=== PATIENT | female | born 1990 | race African-American/Black ===

== ENCOUNTER 2016-11-08 10:31 | Emergency (ER) | payer OTHER ==
[2016-11-08 10:43] VITALS: BP 125/73
--- NOTE | 2016-11-08 11:20 | ER Document Report ---
ED Medical Screen (RME) - General Chief Complaint: Vaginal Bleeding Stated Complaint: VAGINAL BLEEDING TRAVEL OUTSIDE OF THE U.S[place] IN LAST 30 DAYS: No - HPI Notes: 11/08/16 11:19 Patient states negative test at home concern about vaginal discharge and bleeding. States recently treated for gonorrhea chlamydia and trichomonas. Last sexual course of the week and half ago. Concerned she may be infected again with STD. - Related Data Allergies/Adverse Reactions: No Known Allergies Allergy (Verified 11/08/16 10:41) Past Medical History - Past Medical History Cardiac Medical History: Reports: Hx Heart Murmur Pulmonary Medical History: Denies: Hx Tuberculosis Neurological Medical History: Denies: Hx Seizures Renal/ Medical History: Denies: Hx Peritoneal Dialysis Past Surgical History: Reports: Hx Abdominal Surgery, Hx Gynecologic Surgery - right fallopian tube removed by laparoscope.. Denies: Hx Hysterectomy, Hx Tubal Ligation - Immunizations Immunizations up to date: No Hx Diphtheria, Pertussis, Tetanus Vaccination: No Review of Systems - Review of Systems Notes: Vaginal discharge Physical Exam - Vital signs Vitals: Temp Pulse Resp BP Pulse Ox 98.8 F 71 20 125/73 100 11/08/16 10:41 11/08/16 10:41 11/08/16 10:41 11/08/16 10:41 11/08/16 10:41 Interpretation: Other - Vaginal discharge Course - Vital Signs Vital signs: Temp Pulse Resp BP Pulse Ox 98.8 F 71 20 125/73 100 11/08/16 10:41 11/08/16 10:41 11/08/16 10:41 11/08/16 10:41 11/08/16 10:41
--- NOTE | 2016-11-08 11:43 | ER Document Report ---
ED GI/ - General Chief Complaint: Vaginal Discharge Stated Complaint: VAGINAL BLEEDING Time seen by provider: 11:40 Mode of Arrival: Ambulatory Information source: Patient Notes: 25-year-old female presents to ED for vaginal discharge with some spotting for the last week. She states that she was treated in the emergency room about a month ago for GC chlamydia and Trichomonas and her boyfriend states that he was also treated. They had intercourse about a week ago she started with the symptoms 2-3 days. She states she has since broke up with her boyfriend and needs to be reevaluated. TRAVEL OUTSIDE OF THE [place] IN LAST 30 DAYS: No - HPI Patient complains to provider of: Vaginal bleeding, Vaginal discharge Timing/Duration: Gradual Quality of pain: No pain Pain Level: 0 Location: Other - Vaginal discharge Vaginal bleeding (Compared to normal period): Spotting LMP: 10/26/2016 Associated symptoms: Vaginal discharge, Other - Vaginal bleeding Exacerbated by: Denies Relieved by: Denies Similar symptoms previously: Yes Recently seen / treated by doctor: Yes - Related Data Allergies/Adverse Reactions: No Known Allergies Allergy (Verified 11/08/16 10:41) Past Medical History - General Information source: Patient - Social History Smoking Status: Never Smoker Cigarette use (# per day): No Chew tobacco use (# tins/day): No Smoking Education Provided: No Frequency of alcohol use: None Drug Abuse: None Family History: None Patient has suicidal ideation: No Patient has homicidal ideation: No - Past Medical History Cardiac Medical History: Reports: Hx Heart Murmur Pulmonary Medical History: Reports: None EENT Medical History: Reports: None Neurological Medical History: Reports: None Endocrine Medical History: Reports: None Renal/ Medical History: Reports: Hx Pelvic Inflammatory Disease Malignancy Medical History: Reports: None GI Medical History: Reports: None Musculoskeltal Medical History: Reports None Skin Medical History: Reports None Psychiatric Medical History: Reports: None Traumatic Medical History: Reports: None Infectious Medical History: Reports: None Past Surgical History: Reports: Hx Gynecologic Surgery - right fallopian tube removed by laparoscope. - Immunizations Immunizations up to date: No Hx Diphtheria, Pertussis, Tetanus Vaccination: No Review of Systems - Review of Systems Constitutional: No symptoms reported EENT: No symptoms reported Cardiovascular: No symptoms reported Respiratory: No symptoms reported Gastrointestinal: No symptoms reported Genitourinary: Discharge Female Genitourinary: No symptoms reported Musculoskeletal: No symptoms reported Skin: No symptoms reported Hematologic/Lymphatic: No symptoms reported Neurological/Psychological: No symptoms reported -: Yes All other systems reviewed and negative Physical Exam - Vital signs Vitals: Temp Pulse Resp BP Pulse Ox 98.8 F 71 20 125/73 100 11/08/16 10:41 11/08/16 10:41 11/08/16 10:41 11/08/16 10:41 11/08/16 10:41 Interpretation: Normal - General General appearance: Appears well, Alert - HEENT Head: Normocephalic, Atraumatic Eyes: Normal Pupils: PERRL - Respiratory Respiratory status: No respiratory distress Chest status: Nontender Breath sounds: Normal Chest palpation: Normal - Cardiovascular Rhythm: Regular Heart sounds: Normal auscultation Murmur: No - Abdominal Inspection: Normal Distension: No distension Bowel sounds: Normal Tenderness: Nontender Organomegaly: No organomegaly - Genitourinary External exam: Normal Speculum exam: Cervix closed, Vaginal discharge Vaginal bleeding: None Bimanuel exam: Normal - Back Back: Normal, Nontender - Extremities General upper extremity: Normal inspection, Nontender, Normal color, Normal ROM , Normal temperature General lower extremity: Normal inspection, Nontender, Normal color, Normal ROM , Normal temperature, Normal weight bearing. No: Marquise's sign - Neurological Neuro grossly intact: Yes Cognition: Normal Orientation: AAOx4 Gilbert Coma Scale Eye Opening: Spontaneous Gilbert Coma Scale Verbal: Oriented Heather Coma Scale Motor: Obeys Commands Heather Coma Scale Total: 15 Speech: Normal Motor strength normal: LUE, RUE, LLE, RLE Sensory: Normal - Psychological Associated symptoms: Normal affect, Normal mood - Skin Skin Temperature: Warm Skin Moisture: Dry Skin Color: Normal Course - Vital Signs Vital signs: Temp Pulse Resp BP Pulse Ox 98.8 F 71 20 125/73 100 11/08/16 10:41 11/08/16 10:41 11/08/16 10:41 11/08/16 10:41 11/08/16 10:41 - Laboratory Laboratory results interpreted by me: 11/08/16 11:35 Urine Blood SMALL H Ur Leukocyte Esterase MODERATE H Discharge - Discharge Clinical Impression: Trichomonas vaginitis, Bacterial vaginitis Vaginitis Qualifiers: Chronicity: acute Qualified Code(s): N76.0 - Acute vaginitis Condition: Stable Disposition: HOME, SELF-CARE Instructions: Family Physicians / Practices, Vaginosis, Bacterial ([facility]), Trichomonas Infection ([facility]) Additional Instructions: Vaginitis Your exam shows that you have vaginitis, a vaginal infection. The infection can be caused by a many different organisms, including trichomonas or Gardnerella. The usual symptoms are vaginal irritation and discharge. The treatment is usually antibiotics such as Flagyl. Laboratory tests can determine which germ is responsible. Use the medication as prescribed. Because this infection can be transmitted sexually, your sexual partner may need to be checked and treated also. If your physician has not discussed this with you, please check before resuming sexual relations. If a culture shows gonorrhea or chlamydia, the infection must be reported to the health department. Call the doctor if you develop pelvic pain, fever, or problems with urination, or if you don't improve as expected. CEPHALOSPORINS: An antibiotic of the cephalosporin class has been prescribed. This type of antibiotic covers a wide variety of infections, including those of the skin, lungs, middle ear, and urinary tract. This antibiotic is somewhat similar to the penicillin family. In rare cases , a person who is allergic to penicillin will also be allergic to this medication. If you have had a severe allergic reaction to penicillin, and have not taken this antibiotic since that time, notify your doctor. Antibiotics which cover many germs ("broad spectrum" antibiotics) are more likely to cause diarrhea or "yeast" infections. Women prone to vaginal yeast problems may suffer an attack after taking this antibiotic. In infants, oral thrush (white spots "stuck" on the cheek) or yeast diaper rash may result. See your doctor if these problems occur. Call the doctor at once if you develop hives, itching, shortness of breath , or lightheadedness. AZITHROMYCIN: Azithromycin (Zithromax) is a broad spectrum antibiotic in the same class as erythromycin. It can treat a variety of bacterial infections, but is most frequently used for respiratory infections. Azithromycin is extremely long-lasting. It accumulates in body tissues and continues to kill bacteria for many days. In order to improve absorption, Azithromycin should be taken at least one hour before or two hours after a meal. It does not have the same strong tendency to upset the stomach as erythromycin and is usually very well tolerated. Patients who have had a rash or other true allergic reactions to erythromycin should not take this medication. Call if you develop gastrointestinal distress, severe diarrhea, rash, hives, itching, or shortness of breath. METRONIDAZOLE: Metronidazole (Flagyl) has been prescribed. This medication is used to kill a type of bacteria called anaerobes, and protozoan parasites such as trichomonas and Giardia. Flagyl often causes a metallic taste in the mouth and mild nausea. Do not use alcohol in any form with Flagyl (including alcohol in medication elixirs). Flagyl interacts with alcohol to cause flushing, palpitations, headache, stomach cramps, and vomiting. Do not use Flagyl if you are taking Antabuse (disulfiram). Call the doctor at once if you develop rash, shortness of breath, itching, or lightheadedness. FOLLOW-UP CARE: If you have been referred to a physician for follow-up care, call the physician s office for an appointment as you were instructed or within the next two days. If you experience worsening or a significant change in your symptoms, notify the physician immediately or return to the Emergency Department at any time for re-evaluation. Prescriptions: Metronidazole [Flagyl 500 mg Tablet] 500 mg PO BID #14 tablet
[2016-11-08 12:00] LABS: APPEARANCE,URINE SLIGHTLY-CLOUDY; BILIRUBIN,URINE NEGATIVE (NEGATIVE); GLUCOSE, URINE NEGATIVE (NEGATIVE); KETONES,URINE NEGATIVE (NEGATIVE); LEUKOCYTE ESTERASE,URINE MODERATE (NEGATIVE); NITRITE,URINE NEGATIVE (NEGATIVE); PROTEIN,URINE NEGATIVE (NEGATIVE); URINE SPECIFIC GRAVITY 1.026; UROBILINOGEN,URINE NEGATIVE mg/dL (<2.0)
[2016-11-08] MEDS ORDERED: CEFTRIAXONE INJ 250 MG VIAL IM ONE (12:15)
[2016-11-08] MEDS ORDERED: METRONIDAZOLE 500 MG TABLET PO ONE (12:15)
[2016-11-08] MEDS ORDERED: LIDOCAINE 1% INJ-PF (10 MG/ML) 30 ML SDV INJ ONE (12:15)
[2016-11-08] MEDS ORDERED: AZITHROMYCIN 250 MG TABLET PO ONE (12:15)
[2016-11-08 13:26] LABS: CHLAM PCR NOT DETECTED (NOT DETECT)
== END 2016-11-08 13:00 | disposition home or self-care (01) ==
LOC: ER 10:31
DX: A59.01 Trichomonal vulvovaginitis (principal); N76.0 Acute vaginitis; N89.8 Other specified noninflammatory disorders of vagina
CPT/HCPCS: 99284; 96372; 51701; 87086; 87210; 81025; 81001; 87491; 87591; J3490; J0696

== ENCOUNTER 2016-12-15 00:36 | Emergency (ER) | payer OTHER ==
[2016-12-15] MEDS ORDERED: HYDROCODONE/ACETAMINOPHEN 5-325 MG 6 TAB/DSPK PO PRN (01:09)
[2016-12-15] MEDS ORDERED: PENICILLIN V POTASSIUM 500 MG TABLET PO ONE (01:09)
--- NOTE | 2016-12-15 01:14 | ER Document Report ---
ED Oral Problem - General Chief Complaint: Toothache Stated Complaint: TOOTHACHE Time Seen by Provider: 12/15/16 01:02 Notes: 25-year-old female presented to ED for dental pain tooth #15 for the last week worse the last 3 days and even worse today. She states it broke off about a week and a half ago. States she called several dentist was not able to be seen today. She states that one person she called that would be $150 to pull the tooth. TRAVEL OUTSIDE OF THE [place] IN LAST 30 DAYS: No - HPI Patient complains to provider of: Toothache Onset: Last week Onset: Gradual Quality of pain: Sharp, Throbbing Severity: Severe Pain Level: 5 Associated symptoms: Toothache Worsened by: Cold Relieved by: Nothing Similar symptoms previously: Yes Recently seen / treated by doctor/dentist: No - Related Data Allergies/Adverse Reactions: No Known Allergies Allergy (Verified 11/08/16 10:41) Past Medical History - General Information source: Patient - Social History Smoking Status: Current Every Day Smoker Cigarette use (# per day): Yes - 1-2 cigarettes a day Smoking Education Provided: Yes - less than 1 minute Frequency of alcohol use: Occasional Drug Abuse: None Occupation: [employer] Lives with: Alone Family History: Arthritis, DM, Hypertension Patient has suicidal ideation: No Patient has homicidal ideation: No - Past Medical History Cardiac Medical History: Reports: Hx Heart Murmur Pulmonary Medical History: Reports: None EENT Medical History: Reports: None Neurological Medical History: Reports: None Endocrine Medical History: Reports: None Renal/ Medical History: Reports: Hx Ectopic , Hx Pelvic Inflammatory Disease Malignancy Medical History: Reports: None GI Medical History: Reports: None Musculoskeltal Medical History: Reports None Skin Medical History: Reports None Psychiatric Medical History: Reports: None Traumatic Medical History: Reports: None Infectious Medical History: Reports: None Past Surgical History: Reports: Hx Gynecologic Surgery - right fallopian tube removed by laparoscope. Ectopic - Immunizations Immunizations up to date: No Hx Diphtheria, Pertussis, Tetanus Vaccination: No Review of Systems - Review of Systems Constitutional: No symptoms reported EENT: Dental problem Cardiovascular: No symptoms reported Respiratory: No symptoms reported Gastrointestinal: No symptoms reported Genitourinary: No symptoms reported Female Genitourinary: No symptoms reported Musculoskeletal: No symptoms reported Skin: No symptoms reported Hematologic/Lymphatic: No symptoms reported Neurological/Psychological: No symptoms reported Physical Exam - Vital signs Vitals: Temp Pulse Resp BP Pulse Ox 98.6 F 82 16 144/108 H 94 12/15/16 00:42 12/15/16 00:42 12/15/16 00:42 12/15/16 00:42 12/15/16 00:42 Interpretation: Normal - General General appearance: Appears well, Alert - HEENT Head: Normocephalic, Atraumatic Eyes: Normal Pupils: PERRL Ears: Normal External canal: Normal Tympanic membrane: Normal Sinus: Normal Nasal: Normal Mouth/Lips: Normal Teeth diagram: 1 - Part of tooth missing large cavity noted tooth #15. Gingivitis throughout , gums Pharynx: Normal Neck: Normal - Respiratory Respiratory status: No respiratory distress Chest status: Nontender Breath sounds: Normal Chest palpation: Normal - Cardiovascular Rhythm: Regular Heart sounds: Normal auscultation Murmur: No - Abdominal Inspection: Normal Distension: No distension Bowel sounds: Normal Tenderness: Nontender Organomegaly: No organomegaly - Back Back: Normal, Nontender - Extremities General upper extremity: Normal inspection, Nontender, Normal color, Normal ROM , Normal temperature General lower extremity: Normal inspection, Nontender, Normal color, Normal ROM , Normal temperature, Normal weight bearing. No: Marquise's sign - Neurological Neuro grossly intact: Yes Cognition: Normal Orientation: AAOx4 [place] Coma Scale Eye Opening: Spontaneous Heather Coma Scale Verbal: Oriented Heather Coma Scale Motor: Obeys Commands Heather Coma Scale Total: 15 Speech: Normal Motor strength normal: LUE, RUE, LLE, RLE Sensory: Normal - Psychological Associated symptoms: Normal affect, Normal mood - Skin Skin Temperature: Warm Skin Moisture: Dry Skin Color: Normal Course - Re-evaluation Re-evalutation: 12/15/16 02:10 Patient treated with Penicillin VK given [place] dispense pack for pain. Patient instructed to follow-up with dentist as soon as possible to have tooth repaired or pulled. - Vital Signs Vital signs: Temp Pulse Resp BP Pulse Ox 97.2 F 70 16 133/87 H 100 12/15/16 01:20 12/15/16 01:20 12/15/16 00:42 12/15/16 01:20 12/15/16 01:20 Discharge - Discharge Clinical Impression: Pain due to dental caries Condition: Stable Disposition: HOME, SELF-CARE Instructions: Dentist Additional Instructions: TOOTHACHE: Your pain is due to dental decay. The tooth must be repaired in order for you to feel better. You will, therefore, be referred to a dentist. We do not have dentists on the staff at [facility]. Severe swelling or drainage around a tooth usually means a dental abscess. This also requires evaluation and treatment by the dentist, but antibiotics may be prescribed while awaiting dental treatment. You should be rechecked immediately if you develop major swelling of the face, increasing pain, a lump in the jaw or gums, headache, difficulty swallowing, or fever. ORAL NARCOTIC MEDICATION: You have been given a prescription for pain control. This medication is a narcotic. It's best taken with food, as nausea can result if taken on an empty stomach. Don't operate machinery or drive within six hours of taking this medication. Do not combine this medicine with alcohol, or with any medication which can cause sedation (such as cold tablets or sleeping pills) unless you get permission from the physician. Narcotics tend to cause constipation. If possible, drink plenty of fluids and eat a diet high in fiber and fruits. Please be aware that prescription narcotics also have the potential for abuse. People become addicted to these medications because of the general sense of wellbeing that they induce. This feeling along with a significant reduction in tension, anxiety, and aggression provides a stimulating seductive quality to these drugs. Once your pain is under control, we encourage you to discard your unused narcotics. PENICILLIN V K: You have been given a prescription for Penicillin VK. Your physician has determined that this is the best antibiotic for your condition. Pen VK can be taken with meals, however more of the antibiotic gets into the bloodstream if it's taken on an empty stomach. Penicillin usually has no side effects. However, allergy to penicillins is common. If you have had an allergic reaction to any drug of the penicillin family, you should never take any other penicillin. Notify your doctor at once if you develop hives, itching, swelling, faintness, or shortness of breath. FOLLOW-UP CARE: You have been referred for follow-up care to the dentists listed below. Call the dentists office for an appointment as you were instructed or within the next two days. If you experience worsening or a significant change in your symptoms, notify the physician immediately or return to the Emergency Department at any time for re-evaluation. [facility] [address] [place] [address] [facility] [address] [facility] [address] [facility] ([facility]) [facility] [address] [email or web address] [address] [place] [address] Wednesday- 8:00am to 5:00 pm Will see patients from other [facility]. Charges based on income and family size and accepts Medicare, Medicaid, and Insurances Will pull molars [facility] [address] Hours of Operation 8:00 am - 4:30 pm weekdays The following dental offices accept Medicaid: [facility] Dr. Spencer Dr. Cedeño Dr. Palacio Dr. Bass Marko Baker Lutsavage, and Melodie oral surgery Dr. Anguiano ([place]) Dr. Murguia ([place]) [facility] Drs. Rose and Thaddeus ([place]) Dr. Sanchez ([place]) [facility] Dr. Rivas ([place]) Drs. Douglas and ([place]) Medicaid Care Line Prescriptions: Penicillin V Potassium [Penicillin Vk 500 mg Tablet] 500 mg PO BID #20 tablet Forms: Elevated Blood Pressure, Smoking Cessation Education, Return to Work
[2016-12-15 01:22] VITALS: BP 133/87
== END 2016-12-15 01:26 | disposition home or self-care (01) ==
LOC: ER 00:36
DX: K02.9 Dental caries, unspecified (principal); F17.210 Nicotine dependence, cigarettes, uncomplicated
CPT/HCPCS: 99282

== ENCOUNTER 2017-01-04 12:10 | Emergency (ER) | payer OTHER, MEDICAID ==
--- NOTE | 2017-01-04 13:13 | ER Document Report ---
ED General - General Chief Complaint: Vaginal Bleeding Stated Complaint: VAGINAL BLEEDING Time Seen by Provider: 01/04/17 13:06 Mode of Arrival: Ambulatory Information source: Patient Notes: This is a 26-year-old female with a history of prior ectopic in 2013 who presents with lower abdominal cramping and vaginal bleeding. Her last menstrual period was on November 24 which puts her at about 6 weeks. She had a positive home test last week. She began spotting yesterday and her bleeding became a little heavier today. She reports left sided pelvic and lower abdominal cramping and pain. She states this feels similar to her prior ectopic. She does not know her blood type. TRAVEL OUTSIDE OF THE [place] IN LAST 30 DAYS: No - Related Data Allergies/Adverse Reactions: No Known Allergies Allergy (Verified 11/08/16 10:41) Past Medical History - General Information source: Patient Last Menstrual Period: 11-24-16 - Social History Smoking Status: Former Smoker Chew tobacco use (# tins/day): No Frequency of alcohol use: None Drug Abuse: None Family History: Arthritis, DM, Hypertension - Past Medical History Cardiac Medical History: Reports: Hx Heart Murmur Pulmonary Medical History: Denies: Hx Tuberculosis Neurological Medical History: Denies: Hx Seizures Renal/ Medical History: Reports: Hx Ectopic , Hx Pelvic Inflammatory Disease. Denies: Hx Peritoneal Dialysis Past Surgical History: Reports: Hx Abdominal Surgery, Hx Gynecologic Surgery - right fallopian tube removed by laparoscope. Ectopic . Denies: Hx Hysterectomy, Hx Tubal Ligation - Immunizations Immunizations up to date: No Hx Diphtheria, Pertussis, Tetanus Vaccination: No Review of Systems - Review of Systems Constitutional: No symptoms reported. denies: Chills, Fever EENT: No symptoms reported Cardiovascular: No symptoms reported. denies: Chest pain Respiratory: No symptoms reported Gastrointestinal: See HPI Genitourinary: No symptoms reported. denies: Burning, Dysuria Female Genitourinary: See HPI Skin: No symptoms reported Hematologic/Lymphatic: No symptoms reported Neurological/Psychological: No symptoms reported Physical Exam - Vital signs Vitals: Temp Pulse Resp BP Pulse Ox 98.8 F 74 14 121/80 99 01/04/17 12:12 01/04/17 12:12 01/04/17 12:12 01/04/17 12:12 01/04/17 12:12 - General General appearance: Appears well, Alert In distress: None - HEENT Head: Normocephalic, Atraumatic Eyes: Normal Pupils: PERRL Mucous membranes: Normal - Respiratory Respiratory status: No respiratory distress Breath sounds: Normal. No: Rhonchi, Stridor, Wheezing - Cardiovascular Rhythm: Regular Heart sounds: Normal auscultation, S1 appreciated, S2 appreciated - Abdominal Inspection: Normal Distension: No distension Bowel sounds: Normal Tenderness: Tender Notes: LLQ TTP, no guarding/rebound/rigidity - Neurological Neuro grossly intact: Yes Cognition: Normal Orientation: AAOx4 - Psychological Associated symptoms: Normal affect, Normal mood - Skin Skin Temperature: Warm Skin Moisture: Dry Skin Color: Normal Course - Vital Signs Vital signs: Temp Pulse Resp BP Pulse Ox 98.8 F 74 14 121/80 99 01/04/17 12:12 01/04/17 12:12 01/04/17 12:12 01/04/17 12:12 01/04/17 12:12
[2017-01-04 14:05] LABS: ABSOLUTE BASOPHILS # (AUTO) 0.1 10^3/uL (0.0-0.2); ABSOLUTE LYMPHOCYTES (AUTO) 1.6 10^3/uL (0.5-4.7); ABSOLUTE MONOCYTES (AUTO) 0.3 10^3/uL (0.1-1.4); ABSOLUTE NEUT (AUTO) 4.3 10^3/uL (1.7-8.2); BASOPHILS % (AUTO) 0.9 % (0-2); EOSINOPHILS % (AUTO) 0.5 % (0-6); HEMOGLOBIN 13.5 g/dL (12.0-15.5); HGB HCT DIFFERENCE -0.5; LYMPHOCYTES % (AUTO) 25.5 % (13-45); MEAN CORPUSCULAR HEMOGLOBIN 28.7 pg (27.0-33.4); MEAN CORPUSCULAR HGB CONC 32.8 g/dL (32.0-36.0); MEAN CORPUSCULAR VOLUME 87 fl (80-97); MONOCYTES % (AUTO) 4.4 % (3-13); RED CELL DISTRIBUTION WIDTH 13.5 % (11.5-14.0); SEGMENTED NEUTROPHILS % (AUTO) 68.7 % (42-78); WHITE BLOOD COUNT 6.2 10^3/uL (4.0-10.5)
[2017-01-04 14:18] LABS: ALANINE AMINOTRANSFERASE 32 U/L (9-52); ALBUMIN 4.5 g/dL (3.5-5.0); ALKALINE PHOSPHATASE 56 U/L (38-126); ANION GAP 7 (5-19); ASPARTATE AMINO TRANSFERASE 23 U/L (14-36); BILIRUBIN,DIRECT 0.2 mg/dL (0.0-0.4); BILIRUBIN,TOTAL 0.5 mg/dL (0.2-1.3); BLOOD UREA NITROGEN 8 mg/dL (7-20); CALCIUM 10.1 mg/dL (8.4-10.2); CARBON DIOXIDE 27 mmol/L (22-30); CHLORIDE 101 mmol/L (98-107); CREATININE RESULT 0.65 mg/dL (0.52-1.25); GLUCOSE 90 mg/dL (75-110); POTASSIUM 4.7 mmol/L (3.6-5.0); SODIUM 135.4 mmol/L (137-145); TOTAL PROTEIN 7.9 g/dL (6.3-8.2)
[2017-01-04] MEDS ORDERED: ACETAMINOPHEN 325 MG TABLET PO ONE (14:29)
--- NOTE | 2017-01-04 15:27 | RADIOLOGY REPORT (SQ) ---
EXAM DESCRIPTION: U/S OB TRANSVAGINAL W/O DOP COMPLETED DATE/TIME: 01/04/2017 3:15 pm REASON FOR STUDY: rule out ectopic, lower abd cramping COMPARISON: None. TECHNIQUE: Transvaginal static and realtime grayscale images acquired of the pelvis. Additional denis cted spectral and color Doppler images recorded. All images stored on PACs. [id number] LIMITATIONS: None. FINDINGS: FETUS: Living intrauterine . EGA: 5 weeks 6 days MEAGAN: 08/31/2017 FHR: 117 beats per minute. SUBCHORIONIC BLEED: No significant. SIZE OF BLEED: Not applicable. UTERUS: No masses. No anomalies. CERVICAL LENGTH: 3.1 cm Closed. RIGHT ADNEXA: Normal ovary with normal vascular flow. No adnexal free fluid. No adnexal masses. LEFT ADNEXA: Normal ovary with normal vascular flow. No adnexal free fluid. No adnexal masses. FREE FLUID: None. OTHER: No other significant finding. IMPRESSION: LIVING INTRAUTERINE . EGA 5 weeks 6 days Trimester of : First - 0 to 13 weeks. TECHNICAL DOCUMENTATION: JOB ID: [id number] [employer]- All Rights Reserved
--- NOTE | 2017-01-04 15:43 | ER Document Report ---
ED GI/ - General Chief Complaint: Vaginal Bleeding Stated Complaint: VAGINAL BLEEDING Time Seen by Provider: 01/04/17 13:06 Mode of Arrival: Ambulatory Notes: Patient is a 26 year old female who presents to the ED complaining of abdominal cramping for 3 weeks with vaginal spotting for one day. LMP 11/24/16 with positive test last week. She states her spotting is miimal. Orginannly she noticied spotting on her underwear but now only when she wipes after urinating. She denies any vaginal discomfort, irritation, discharge. She denies any pyuria, hematuria, frequency, urgency or hesitation. Admits to mild nausea denies any vomiting, abdominal pain. PMH: ectopic with right salpingectomy TRAVEL OUTSIDE OF THE [place] IN LAST 30 DAYS: No - Related Data Allergies/Adverse Reactions: No Known Allergies Allergy (Verified 11/08/16 10:41) Past Medical History - General Information source: Patient Last Menstrual Period: 11-24-16 - Social History Smoking Status: Former Smoker Chew tobacco use (# tins/day): No Frequency of alcohol use: None Drug Abuse: None Family History: Arthritis, DM, Hypertension - Past Medical History Cardiac Medical History: Reports: Hx Heart Murmur Pulmonary Medical History: Denies: Hx Tuberculosis Neurological Medical History: Denies: Hx Seizures Renal/ Medical History: Reports: Hx Ectopic , Hx Pelvic Inflammatory Disease. Denies: Hx Peritoneal Dialysis Past Surgical History: Reports: Hx Abdominal Surgery, Hx Gynecologic Surgery - right fallopian tube removed by laparoscope. Ectopic . Denies: Hx Hysterectomy, Hx Tubal Ligation - Immunizations Immunizations up to date: No Hx Diphtheria, Pertussis, Tetanus Vaccination: No Review of Systems - Review of Systems Constitutional: No symptoms reported Cardiovascular: No symptoms reported Respiratory: No symptoms reported Gastrointestinal: No symptoms reported Genitourinary: See HPI Female Genitourinary: See HPI -: Yes All other systems reviewed and negative Physical Exam - Vital signs Vitals: Temp Pulse Resp BP Pulse Ox 98.8 F 74 14 121/80 99 01/04/17 12:12 01/04/17 12:12 01/04/17 12:12 01/04/17 12:12 01/04/17 12:12 - Notes Notes: PHYSICAL EXAM GENERAL: Alert, interacts well. HEAD: Normocephalic, atraumatic. LUNGS: Clear to auscultation bilaterally, no wheezes, rales, or rhonchi. No respiratory distress. HEART: Regular rate and rhythm. No murmurs, gallops, or rubs. ABDOMEN: Soft, nondistended, nontender. No guarding, rebound, or rigidity.. Bowel sounds present in all 4 quadrants. Female exam deferred EXTREMITIES: Moves all 4 extremities spontaneously. No edema, radial and dorsalis pedis pulses 2/4 bilaterally. No cyanosis. NEUROLOGICAL: Alert and oriented x4. Normal speech. PSYCH: Normal affect, normal mood. SKIN: Warm, dry, normal turgor. No rashes or lesions noted. Course - Re-evaluation Re-evalutation: 01/04/17 18:30 Patient is a 26-year-old female who is hemodynamic stable, no acute distress and afebrile. CBC shows stable blood count with any other symptoms of anemia or leukocytosis. CMP shows beta hCG consistent with 7 weeks . Transvaginal ultrasound shows a living IUP any evidence of subchorionic bleed. At this time patient is stable for discharge home and follow-up with the health department to establish RN FAMILY care. Patient educated on taking vitamins. Patient educated on signs and symptoms to be aware to return to the emergency dept. - Vital Signs Vital signs: Temp Pulse Resp BP Pulse Ox 98.8 F 77 18 122/76 99 01/04/17 12:12 01/04/17 16:34 01/04/17 16:34 01/04/17 16:34 01/04/17 16:34 - Laboratory Result Diagrams: 01/04/17 13:50 01/04/17 13:50 Laboratory results interpreted by me: 01/04/17 01/04/17 13:50 13:50 Sodium 135.4 L Beta HCG, Quant 59299.00 H Urine Blood SMALL H - Diagnostic Test Radiology reviewed: Reports reviewed Discharge - Discharge Clinical Impression: , Vaginal bleeding before 22 weeks gestation Condition: Good Disposition: HOME, SELF-CARE Additional Instructions: : You are . care is best started as early in as possible. If you're unsure about continuing this , you should discuss this with your physician or with clean room operator at [facility]. You should take only medications approved by your physician. Acetaminophen can safely be taken for minor pains. As a rule, medication for chronic conditions such as asthma or seizures can safely be continued. You should discuss with the physician every medicine you take. Any regular exercise program can be continued. Talk to your physician, however, before engaging in competitive or demanding sports. Alcohol, smoking, and "street drugs" are dangerous to your baby. Cocaine is especially dangerous. Don't use any illicit drugs! BLEEDING DURING EARLY : You have been evaluated for passing blood while . While we take this symptom very seriously, most women with your degree of bleeding will go on to have a perfectly normal baby. At this time, there is no indication that a miscarriage will occur. (A miscarriage occurs when the fetus is abnormal. There is no medicine or treatment to prevent it.) A more serious cause of bleeding is tubal (or ectopic) . An ultrasound usually can show whether the is in the uterus or in the tube. Sometimes in early , no fetus is seen. In this case, careful follow-up, including repeat blood tests and repeat ultrasound, is necessary. Do not douche or have sex for at least a week, or until OK'd by the doctor. Don't use tampons. Call the doctor or return for re-examination if there is an increase in bleeding or cramping, extreme weakness, fainting, new abdominal pain, fever, or passage of tissue. FOLLOW-UP CARE: If you have been referred to a physician for follow-up care, call the physician s office for an appointment as you were instructed or within the next two days. If you experience worsening or a significant change in your symptoms (very heavy bleeding with large clots of blood, passage of tissue, more severe abdominal / pelvic pain or cramping, feeling faint or severe weakness, fever, etc.), notify the physician immediately or return to the Emergency Department at any time for re-evaluation. OBSTETRIC-GYNECOLOGIC (OB-BRIDGE TOLL COLLECTOR) PHYSICIANS IN [place]: [facility] [address] [place] [address] [phone] For active duty and dependents diagnosed with a threatened or miscarriage, you should follow up in the following manner: Standard patients who have a local civilian provider should follow up with that provider. Patients of the Family Practice Clinic should call your Team Nurse at 8: 00 am the following morning for further instructions. If you are neither a Standard patient nor a patient of the Family Practice Clinic, you should follow up at the [facility] ([facility]) . Patients already enrolled in the [facility], [facility] patients not assigned to the Family Practice Clinic, and Active Duty patients not assigned to [facility] should report to the [facility] at 8:00 am the next morning that the [facility] is open and then you will be seen in the OB Clinic at 11:00 am. Forms: Return to Work [facility]NO [facility]AL [facility] - Follow up as needed
[2017-01-04 15:55] LABS: APPEARANCE,URINE CLEAR; BILIRUBIN,URINE NEGATIVE (NEGATIVE); GLUCOSE, URINE NEGATIVE (NEGATIVE); KETONES,URINE NEGATIVE (NEGATIVE); LEUKOCYTE ESTERASE,URINE NEGATIVE (NEGATIVE); NITRITE,URINE NEGATIVE (NEGATIVE); PROTEIN,URINE NEGATIVE (NEGATIVE); URINE SPECIFIC GRAVITY 1.017; UROBILINOGEN,URINE NEGATIVE mg/dL (<2.0)
[2017-01-04 16:35] VITALS: BP 122/76
== END 2017-01-04 16:34 | disposition home or self-care (01) ==
LOC: ER 12:10
DX: O46.91 Antepartum hemorrhage, unspecified, first trimester (principal); R10.9 Unspecified abdominal pain; R11.0 Nausea; Z3A.01 Less than 8 weeks gestation of pregnancy
CPT/HCPCS: 36415; 76817; 80053; 81001; 84702; 85025; 86900; 86901; 99284

== ENCOUNTER 2017-03-03 20:09 | Emergency (ER) | payer OTHER, MEDICAID ==
[2017-03-03] MEDS ORDERED: NORMAL SALINE 1000 ML 1,000 ML IV PRN (20:51)
--- NOTE | 2017-03-03 20:53 | ER Document Report ---
ED Medical Screen (RME) - General Chief Complaint: Headache >24 hrs old Stated Complaint: HEADACHE Time Seen by Provider: 03/03/17 20:50 Notes: Patient is approximately 14 weeks . She states for the last several weeks she has had right-sided headache that radiates down to the right neck. It has been intermittent. She also feels that she has some numbness in this area. She states she has discussed this with her SECURITY OFFICER SUPERVISOR but no imaging has been obtained yet. She has had no vaginal bleeding or discharge but does have some left lower quadrant abdominal pain. She states there was an ultrasound performed here at 5 weeks that was "normal". She states she has had lots of vomiting. Patient states she is also passed out 3 times in the last 2 weeks. Patient states she gets a sensation of feeling hot and flushed and short of breath and then "blacks out". She denies Leg swelling. She denies any previous history of PEs or DVTs. TRAVEL OUTSIDE OF THE [place] IN LAST 30 DAYS: No - Related Data Allergies/Adverse Reactions: No Known Allergies Allergy (Verified 03/03/17 20:25) Home Medications: Current Home Medications Pnv No.95/Ferrous Fum/Folic AC [ Multivitamin Tablet] 1 each PO DAILY [History] Past Medical History - Past Medical History Cardiac Medical History: Reports: Hx Heart Murmur Pulmonary Medical History: Denies: Hx Tuberculosis Neurological Medical History: Denies: Hx Seizures Renal/ Medical History: Reports: Hx Ectopic , Hx Pelvic Inflammatory Disease. Denies: Hx Peritoneal Dialysis Past Surgical History: Reports: Hx Abdominal Surgery, Hx Gynecologic Surgery - right fallopian tube removed by laparoscope. Ectopic . Denies: Hx Hysterectomy, Hx Tubal Ligation - Immunizations Immunizations up to date: No Hx Diphtheria, Pertussis, Tetanus Vaccination: No Physical Exam - Vital signs Vitals: Temp Pulse Resp BP Pulse Ox 98.4 F 70 18 143/82 H 100 03/03/17 20:03/03/17 20:03/03/17 20:03/03/17 20:03/03/17 20:26 Course - Vital Signs Vital signs: Temp Pulse Resp BP Pulse Ox 98.4 F 70 18 143/82 H 100 03/03/17 20:03/03/17 20:03/03/17 20:26 03/03/17 20:26 03/03/17 20:26
[2017-03-03 21:27] LABS: ABSOLUTE BASOPHILS # (AUTO) 0.1 10^3/uL (0.0-0.2); ABSOLUTE EOSINOPHILS # (AUTO) 0.1 10^3/uL (0.0-0.6); ABSOLUTE LYMPHOCYTES (AUTO) 2.5 10^3/uL (0.5-4.7); ABSOLUTE MONOCYTES (AUTO) 0.4 10^3/uL (0.1-1.4); ABSOLUTE NEUT (AUTO) 6.4 10^3/uL (1.7-8.2); BASOPHILS % (AUTO) 0.6 % (0-2); EOSINOPHILS % (AUTO) 1.1 % (0-6); HEMATOCRIT 39.7 % (36.0-47.0); HEMOGLOBIN 13.1 g/dL (12.0-15.5); HGB HCT DIFFERENCE -0.4; LYMPHOCYTES % (AUTO) 26.4 % (13-45); MEAN CORPUSCULAR HEMOGLOBIN 29.4 pg (27.0-33.4); MEAN CORPUSCULAR HGB CONC 32.9 g/dL (32.0-36.0); MEAN CORPUSCULAR VOLUME 89 fl (80-97); MONOCYTES % (AUTO) 4.3 % (3-13); RED BLOOD COUNT 4.45 10^6/uL (3.72-5.28); RED CELL DISTRIBUTION WIDTH 13.7 % (11.5-14.0); SEGMENTED NEUTROPHILS % (AUTO) 67.6 % (42-78); WHITE BLOOD COUNT 9.5 10^3/uL (4.0-10.5)
[2017-03-03 21:36] LABS: ALANINE AMINOTRANSFERASE 23 U/L (9-52); ALBUMIN 4.4 g/dL (3.5-5.0); ALKALINE PHOSPHATASE 53 U/L (38-126); ANION GAP 11 (5-19); ASPARTATE AMINO TRANSFERASE 22 U/L (14-36); BILIRUBIN,DIRECT 0.3 mg/dL (0.0-0.4); BILIRUBIN,TOTAL 0.3 mg/dL (0.2-1.3); BLOOD UREA NITROGEN 9 mg/dL (7-20); CALCIUM 10.3 mg/dL (8.4-10.2); CARBON DIOXIDE 26 mmol/L (22-30); CHLORIDE 100 mmol/L (98-107); CREATININE RESULT 0.61 mg/dL (0.52-1.25); GLUCOSE 84 mg/dL (75-110); POTASSIUM 4.2 mmol/L (3.6-5.0); SODIUM 136.6 mmol/L (137-145); TOTAL PROTEIN 7.9 g/dL (6.3-8.2)
[2017-03-03] MEDS ORDERED: DIPHENHYDRAMINE HCL 50 MG/ML VIAL IV ONE (22:05)
[2017-03-03] MEDS ORDERED: METOCLOPRAMIDE HCL INJ/PF 10 MG/2 ML SDV IV ONE (22:05)
--- NOTE | 2017-03-03 22:08 | ER Document Report ---
ED GI/ - General Chief Complaint: Headache >24 hrs old Stated Complaint: HEADACHE Time Seen by Provider: 03/03/17 20:50 Notes: Patient is a 26-year-old female, at 14 weeks gestation, the comes emergency department for chief complaint of a headache on the right side of her head with some right sided neck tenderness and soreness for the past 3 days, she states that she frequently gets lightheaded when standing and has to sit down, and he also states that she is getting pains in her left lower abdomen. She denies trauma, she denies vaginal bleeding or discharge, she denies fever. She states she is very nervous about the because the first 1 was an ectopic which was surgically removed. She sees SUPERVISOR PACKING in [place]. TRAVEL OUTSIDE OF THE [place] IN LAST 30 DAYS: No - Related Data Allergies/Adverse Reactions: No Known Allergies Allergy (Verified 03/03/17 20:25) Home Medications: Current Home Medications Pnv No.95/Ferrous Fum/Folic AC [ Multivitamin Tablet] 1 each PO DAILY [History] Past Medical History - General Information source: Patient - Social History Smoking Status: Never Smoker Frequency of alcohol use: None Drug Abuse: None Family History: Arthritis, DM, Hypertension Patient has suicidal ideation: No Patient has homicidal ideation: No - Past Medical History Cardiac Medical History: Reports: Hx Heart Murmur Pulmonary Medical History: Denies: Hx Tuberculosis Neurological Medical History: Denies: Hx Seizures Renal/ Medical History: Reports: Hx Ectopic , Hx Pelvic Inflammatory Disease. Denies: Hx Peritoneal Dialysis Past Surgical History: Reports: Hx Abdominal Surgery, Hx Gynecologic Surgery - right fallopian tube removed by laparoscope. Ectopic . Denies: Hx Hysterectomy, Hx Tubal Ligation - Immunizations Immunizations up to date: No Hx Diphtheria, Pertussis, Tetanus Vaccination: No Review of Systems - Review of Systems Constitutional: No symptoms reported EENT: No symptoms reported Cardiovascular: No symptoms reported Respiratory: No symptoms reported Gastrointestinal: See HPI Genitourinary: No symptoms reported Female Genitourinary: See HPI Musculoskeletal: No symptoms reported Skin: No symptoms reported Hematologic/Lymphatic: No symptoms reported Neurological/Psychological: See HPI Physical Exam - Vital signs Vitals: Temp Pulse Resp BP Pulse Ox 98.4 F 70 18 143/82 H 100 03/03/17 20:26 03/03/17 20:26 03/03/17 20:26 03/03/17 20:26 03/03/17 20:26 Interpretation: Normal - General General appearance: Appears well, Alert, Anxious In distress: None - HEENT Head: Normocephalic, Atraumatic Eyes: Normal Pupils: PERRL - Respiratory Respiratory status: No respiratory distress Chest status: Nontender Breath sounds: Normal Chest palpation: Normal - Cardiovascular Rhythm: Regular Heart sounds: Normal auscultation Murmur: No - Abdominal Inspection: Normal Distension: No distension Bowel sounds: Normal Tenderness: Tender - Very mild left lower quadrant tenderness, no guarding, soft abdomen otherwise Organomegaly: No organomegaly - Back Back: Normal, Nontender. No: Tender, CVA tenderness - Extremities General upper extremity: Normal inspection, Nontender, Normal color, Normal ROM , Normal temperature General lower extremity: Normal inspection, Nontender, Normal color, Normal ROM , Normal temperature, Normal weight bearing. No: Marquise's sign - Neurological Neuro grossly intact: Yes Cognition: Normal Orientation: AAOx4 Heather Coma Scale Eye Opening: Spontaneous [place] Coma Scale Verbal: Oriented [place] Coma Scale Motor: Obeys Commands Heather Coma Scale Total: 15 Speech: Normal Motor strength normal: LUE, RUE, LLE, RLE Sensory: Normal - Psychological Associated symptoms: Normal affect, Normal mood - Skin Skin Temperature: Warm Skin Moisture: Dry Skin Color: Normal Course - Re-evaluation Re-evalutation: Patient initially very anxious and keeps saying that she is scared and she just wants checked out. Otherwise she is quite well-appearing, she has normal neurological exam, she has a soft abdomen. Mild left lower quadrant tenderness which is nonspecific. After medications her headache completely resolved, she is smiling and well-appearing, an ultrasound was performed because of her lower abdominal pains, this was reviewed with patient in detail, shows no abnormalities. Patient very satisfied at this point, requesting to leave. I did discuss a variety of symptoms that can happen in , discussed follow -up and return precautions, patient states understanding and agreement - Vital Signs Vital signs: Temp Pulse Resp BP Pulse Ox 97.9 F 76 17 138/79 H 100 03/04/17 00:03 03/04/17 00:03 03/04/17 00:03 03/04/17 00:03 03/04/17 00:03 - Laboratory Result Diagrams: 03/03/17 21:05 03/03/17 21:05 Laboratory results interpreted by me: 03/03/17 21:05 Sodium 136.6 L Calcium 10.3 H Discharge - Discharge Clinical Impression: Headache Qualifiers: Headache type: unspecified Headache chronicity pattern: acute headache Intractability: not intractable Qualified Code(s): R51 - Headache Abdominal pain Qualifiers: Abdominal location: generalized Qualified Code(s): R10.84 - Generalized abdominal pain Condition: Stable Disposition: HOME, SELF-CARE Additional Instructions: Your examination and workup showed no concerning abnormalities. Stay hydrated, if you become lightheaded sit down or lie down and put your feet in the air. Recommend heat to your neck, Tylenol for pain. I recommend taking the Colace stool softener for the next couple of days as prescribed. Follow-up with your SUPERVISOR PACKING for additional evaluation and treatment. Return to emergency department for any concerning symptoms including severe abdominal pain, return or worsening headache, fever, or any other concerning symptoms. Prescriptions: Docusate Sodium [Colace 100 mg Capsule] 100 mg PO DAILY #30 capsule Forms: Return to Work
[2017-03-03 22:38] LABS: APPEARANCE,URINE SLIGHTLY-CLOUDY; BILIRUBIN,URINE NEGATIVE (NEGATIVE); GLUCOSE, URINE NEGATIVE (NEGATIVE); KETONES,URINE NEGATIVE (NEGATIVE); LEUKOCYTE ESTERASE,URINE NEGATIVE (NEGATIVE); NITRITE,URINE NEGATIVE (NEGATIVE); PROTEIN,URINE NEGATIVE (NEGATIVE); URINE SPECIFIC GRAVITY 1.012; UROBILINOGEN,URINE NEGATIVE mg/dL (<2.0)
--- NOTE | 2017-03-03 23:29 | RADIOLOGY REPORT (SQ) ---
EXAM DESCRIPTION: U/S OB 14+ TRNABD 1GES W/O DOP COMPLETED DATE/TIME: 03/03/2017 11:21 pm REASON FOR STUDY: left abd/pelvic pain COMPARISON: None. TECHNIQUE: Static and Dynamic grayscale imaging performed of gravid uterus using transabdominal appr oach. Additional selected color Doppler and spectral images recorded. All stored on PACS. LIMITATIONS: None. FINDINGS: EGA: 15 weeks 4 days MEAGAN: 08/21/2017 EFW: Not calculated PERCENTILE: Not calculated DIEGO: Largest pocket 3 cm PLACENTA: Posterior PRESENTATION: Cephalic. ANATOMY: HEART RATE: 155 beats per minute. FOUR CHAMBER HEART: Visualized. THREE VESSEL CORD: Yes. CORD INSERTION: Not visualized KIDNEYS AND BLADDER: Visualized. Appear normal. STOMACH: Not visualized SPINE: Normal as visualized. BRAIN AND LATERAL VENTRICLES: Visualized. Appear normal. OTHER: No other significant finding. MATERNAL ADNEXA: Maternal ovaries not visualized. CERVICAL LENGTH: 3.6 cm Closed. OTHER: No other significant finding. IMPRESSION: LIVING INTRAUTERINE . ESTIMATED GESTATIONAL AGE 15 weeks 4 days NO VISUALIZED ANOMALIES. Trimester of : Second trimester - 13 weeks 1 day to 27 weeks 6 days. TECHNICAL DOCUMENTATION: JOB ID: [id number] [employer]- All Rights Reserved
[2017-03-04 00:04] VITALS: BP 138/79
== END 2017-03-04 00:02 | disposition home or self-care (01) ==
LOC: ER 20:09
DX: O26.892 Other specified pregnancy related conditions, second trimester (principal); R51 Headache; R10.84 Generalized abdominal pain; R10.814 Left lower quadrant abdominal tenderness; R42 Dizziness and giddiness; O99.352 Diseases of the nervous system complicating pregnancy, second trimester; F41.9 Anxiety disorder, unspecified; Z3A.14 14 weeks gestation of pregnancy; Z87.59 Personal history of other complications of pregnancy, childbirth and the puerperium; Z90.79 Acquired absence of other genital organ(s)
CPT/HCPCS: 99284; 96361; 96374; 96375; 36415; 85025; 80053; 81001; 76805; J1200; J2765; J7030

== ENCOUNTER 2017-03-28 20:10 | Emergency (ER) | payer OTHER, MEDICAID ==
[2017-03-28] MEDS ORDERED: PROCHLORPERAZINE EDISYLATE INJ 10 MG/2 ML VIAL IV ONE (21:25)
[2017-03-28] MEDS ORDERED: DIPHENHYDRAMINE HCL 50 MG/ML VIAL IV ONE (21:25)
[2017-03-28] MEDS ORDERED: KETOROLAC TROMETHAMINE INJ/PF 30 MG/1 ML SDV IV ONE (21:25)
[2017-03-28] MEDS ORDERED: PENICILLIN V POTASSIUM 500 MG TABLET PO ONE (22:15)
--- NOTE | 2017-03-28 22:17 | ER Document Report ---
ED General - General Chief Complaint: Headache >24 hrs old Stated Complaint: MIGRANE,TOOTH PAIN Time Seen by Provider: 03/28/17 21:25 Notes: Patient is a 26-year-old female with a history of migraine headaches who presents with a complaint of her typical migraine headache which she believes is been triggered by her right lower molar. Does describe as a gradual onset, dull, throbbing, bitemporal headache. Worsened by lights and sounds. She has tried ibuprofen with no improvement of the pain. She has denies any associated fever, neck pain, confusion, weakness or numbness. She has not seen a primary care doctor or dentist regarding today's concerns. TRAVEL OUTSIDE OF THE [place] IN LAST 30 DAYS: No - Related Data Allergies/Adverse Reactions: No Known Allergies Allergy (Verified 03/28/17 22:02) Past Medical History - General Information source: Patient - Social History Smoking Status: Never Smoker Chew tobacco use (# tins/day): No Frequency of alcohol use: None Drug Abuse: None Family History: Arthritis, DM, Hypertension - Past Medical History Cardiac Medical History: Reports: Hx Heart Murmur Pulmonary Medical History: Denies: Hx Tuberculosis Neurological Medical History: Reports: Hx Migraine. Denies: Hx Seizures Renal/ Medical History: Reports: Hx Ectopic , Hx Pelvic Inflammatory Disease. Denies: Hx Peritoneal Dialysis Past Surgical History: Reports: Hx Abdominal Surgery, Hx Gynecologic Surgery - right fallopian tube removed by laparoscope. Ectopic . Denies: Hx Hysterectomy, Hx Tubal Ligation - Immunizations Immunizations up to date: No Hx Diphtheria, Pertussis, Tetanus Vaccination: Yes Review of Systems - Review of Systems Notes: Constitutional: Negative for fever. HENT: Negative for sore throat. Eyes: Negative for visual changes. Cardiovascular: Negative for chest pain. Respiratory: Negative for shortness of breath. Gastrointestinal: Negative for abdominal pain, vomiting or diarrhea. Genitourinary: Negative for dysuria. Musculoskeletal: Negative for back pain. Skin: Negative for rash. Neurological: Positive for headaches, negative for weakness or numbness. 10 point ROS negative except as marked above and in HPI. Physical Exam - Vital signs Vitals: Temp Pulse Resp BP Pulse Ox 98.5 F 71 14 136/84 H 100 03/28/17 20:47 03/28/17 20:47 03/28/17 20:47 03/28/17 20:47 03/28/17 20:47 Interpretation: Normal Notes: PHYSICAL EXAMINATION: GENERAL: Well-appearing, well-nourished and in no acute distress. HEAD: Atraumatic, normocephalic. EYES: Pupils equal round and reactive to light, extraocular movements intact, sclera anicteric, conjunctiva are normal. ENT: nares patent, oropharynx clear without exudates. Moist mucous membranes. Tooth #30 has a small hole on the anterior medial aspect without any associated apical abscess, buccal mucosal swelling or oropharyngeal edema. NECK: Normal range of motion, supple without lymphadenopathy LUNGS: Breath sounds clear to auscultation bilaterally and equal. No wheezes rales or rhonchi. HEART: Regular rate and rhythm without murmurs ABDOMEN: Soft, nontender, normoactive bowel sounds. No guarding, no rebound. No masses appreciated. EXTREMITIES: Normal range of motion, no pitting or edema. No cyanosis. NEUROLOGICAL: Face symmetric. Tongue protrudes midline. Extraocular motions intact. Pupils are 2 mm and equally reactive. Normal speech, normal gait. 5 out of 5 strength in both the distal and proximal upper and lower extremities bilaterally. Sensation is grossly intact throughout. Finger to nose testing normal. Pronator drift normal. PSYCH: Normal mood, normal affect. SKIN: Warm, Dry, normal turgor, no rashes or lesions noted. Course - Re-evaluation Re-evalutation: 03/28/17 22:15 Presentation of a headache that appears to be most consistent with tension versus migrainous type headache. Headache was not maximal in onset, patient has no focal neurologic deficits, no nuchal rigidity, vital signs within normal limits, no papilledema, and patient is overall well in appearance. Based on clinical history and examination I do not suspect an acute subarachnoid hemorrhage, dural venous sinus thrombosis, acute meningitis, or intercranial mass. Given my low clinical suspicion for any acute life-threatening etiology, I do not feel advanced neuro imaging or laboratory testing is indicated at this time. Patient did have complete resolution after receiving a migraine cocktail. Patient did also complain of dental pain to tooth #30. There is a chip off of this tooth with a small amount of gum swelling around the tooth. This may be the trigger for her recurrent migraine headaches and I have instructed her to follow closely with a dentist for definitive management. She has no evidence of airway compromise, facial edema or elevation of the floor of the tongue. She was started on antibiotics. At this time will discharge with return precautions and follow-up recommendations. Verbal discharge instructions given a the bedside and opportunity for questions given. Medication warnings reviewed. Patient is in agreement with this plan and has verbalized understanding of return precautions and the need for primary care follow-up in the next 24-72 hours. - Vital Signs Vital signs: Temp Pulse Resp BP Pulse Ox 98.7 F 74 18 89/58 L 99 03/28/17 22:32 03/28/17 22:32 03/28/17 22:32 03/28/17 22:32 03/28/17 22:32 Discharge - Discharge Clinical Impression: Toothache Migraine headache Qualifiers: Migraine type: unspecified Status migrainosus presence: with status migrainosus Intractability: not intractable Qualified Code(s): G43.901 - Migraine, unspecified, not intractable, with status migrainosus Condition: Good Disposition: HOME, SELF-CARE Additional Instructions: You were seen today for a migraine headache. Please follow-up with your primary care doctor regarding today's ED visit. Return to emergency department immediately if you develop a headache that gets to its maximum severity within 20 minutes of onset, you pass out, you develop weakness, numbness, changes in your vision, become unable to keep any fluids down for more than 12 hours, or develop a fever greater than 100.4 degrees Fahrenheit. If you develop a similar migraine headache in the future I recommend that you immediately take 600 mg of ibuprofen and 50 mg of Benadryl and go to sleep as quickly as possible. This can often prevent your migraine headache from becoming severe. You have been seen for dental pain. It is very important that you follow-up with a dentist for definitive care. Please return if you develop fever greater than 101, swelling in your face, vomiting, difficulty breathing or swallowing, or any other symptoms that are concerning to you. For pain you should take ibuprofen 600 mg every 6 hours as needed. Prescriptions: Penicillin V Potassium [Penicillin Vk 500 mg Tablet] 500 mg PO BID #20 tablet Referrals: RUBY AMBROSIO MD [Primary Care Provider] - Follow up as needed
[2017-03-28 22:37] VITALS: BP 89/58
== END 2017-03-28 22:35 | disposition home or self-care (01) ==
LOC: ER 20:10
DX: G43.901 Migraine, unspecified, not intractable, with status migrainosus (principal); K08.89 Other specified disorders of teeth and supporting structures
CPT/HCPCS: 99284; 96374; 96375; J1200; J1885; J0780

== ENCOUNTER 2017-04-10 08:21 | Outpatient (CLI) | payer OTHER, MEDICAID ==
[2017-04-10 09:31] LABS: URINE BARBITURATES SCREEN NEGATIVE; URINE METHADONE SCREEN NEGATIVE; URINE OPIATES LOW NEGATIVE; URINE PHENCYCLIDINE SCREEN NEGATIVE
[2017-04-10 09:32] LABS: APPEARANCE,URINE SLIGHTLY-CLOUDY; BILIRUBIN,URINE NEGATIVE (NEGATIVE); GLUCOSE, URINE 50 mg/dL (NEGATIVE); KETONES,URINE NEGATIVE (NEGATIVE); LEUKOCYTE ESTERASE,URINE NEGATIVE (NEGATIVE); NITRITE,URINE NEGATIVE (NEGATIVE); PROTEIN,URINE NEGATIVE (NEGATIVE); URINE SPECIFIC GRAVITY 1.012; UROBILINOGEN,URINE NEGATIVE mg/dL (<2.0)
--- NOTE | 2017-04-10 10:28 | RADIOLOGY REPORT (SQ) ---
EXAM DESCRIPTION: U/S OB LIMITED COMPLETED DATE/TIME: 04/10/2017 10:14 am REASON FOR STUDY: CL and placenta evaluation for vag bleeding COMPARISON: 03/03/2017. TECHNIQUE: Limited transabdominal grayscale ultrasound for evaluation of specific requested obstetri aaron parameters. LIMITATIONS: None. FINDINGS: CERVICAL LENGTH: 3.8 cm. Closed. PLACENTA: Posterior fundal. No previa or abruption. FHR: 152 beats per minute. PRESENTATION: Breech. OTHER: No other significant findings. IMPRESSION: LIMITED OBSTETRICAL ULTRASOUND WITH MEASURED PARAMETERS DELINEATED ABOVE. Trimester of : Second trimester - 13 weeks 1 day to 27 weeks 6 days. TECHNICAL DOCUMENTATION: JOB ID: [id number] [employer]- All Rights Reserved
== END 2017-04-10 10:47 | disposition home or self-care (01) ==
LOC: LC 08:21
PROVIDERS: ATTEND Student in an Organized Health Care Education/Training Program
PROC: 4A1HXCZ Monitoring of Products of Conception, Cardiac Rate, External Approach (ICD-10-PCS; principal; 2017-04-10)
DX: O46.92 Antepartum hemorrhage, unspecified, second trimester (principal); Z3A.21 21 weeks gestation of pregnancy
CPT/HCPCS: 59899; 81001; 80307; 76815; G0480 ×2

== ENCOUNTER 2017-05-17 15:53 | Emergency (ER) | payer OTHER, MEDICAID ==
[2017-05-17 16:15] VITALS: BP 121/67
== END 2017-05-17 17:41 | disposition left against medical advice (07) ==
LOC: ER 15:53
DX: Z53.9 Procedure and treatment not carried out, unspecified reason (principal); R11.10 Vomiting, unspecified

== ENCOUNTER 2017-07-20 16:47 | Outpatient (CLI) | payer OTHER, MEDICAID ==
[2017-07-20 17:30] LABS: APPEARANCE,URINE CLOUDY; BILIRUBIN,URINE NEGATIVE (NEGATIVE); GLUCOSE, URINE 50 mg/dL (NEGATIVE); KETONES,URINE NEGATIVE (NEGATIVE); LEUKOCYTE ESTERASE,URINE LARGE (NEGATIVE); NITRITE,URINE NEGATIVE (NEGATIVE); PROTEIN,URINE 100 mg/dL (NEGATIVE); URINE SPECIFIC GRAVITY 1.017
[2017-07-20 17:49] LABS: URINE BARBITURATES SCREEN NEGATIVE; URINE METHADONE SCREEN NEGATIVE; URINE PHENCYCLIDINE SCREEN NEGATIVE
--- NOTE | 2017-07-20 17:52 | Non Stress Test Report ---
Non Stress Test Datetime Report Generated by CPN: 07/20/2017 17:52 DEMOGRAPHIC EGA NST: 34.0 INDICATION Indication for Study: Other Indication for Study (NST) Other: lc MONITORING Monitor Explained: Monitor Explained; Test Explained; Patient Verbalized Understanding Time on Monitor: 07/20/2017 17:06 Time off Monitor: 07/20/2017 17:51 NST Duration: 45 NST INTERVENTIONS NST Interventions: PO Hydration; Reposition Patient Physician Notified NST: Dr Zhu BABY A: [id number] BABY A Movement : Present Contraction Frequency : irrit FHR Baseline : 125 Accelerations : 15X15 Decelerations : None Variability : Moderate 6-25bpm NST Review: Meets Criteria for Reactive NST NST Review and Verified By : D Bellavance RNC NST Results: Reactive NST REPORT Report Trigger: Send Report
[2017-07-20 17:57] LABS: URINE OPIATES LOW UNCONFIRMED POSITIVE
== END 2017-07-20 17:58 | disposition home or self-care (01) ==
LOC: LC 16:47
PROVIDERS: ATTEND Obstetrics & Gynecology
PROC: 4A1HXCZ Monitoring of Products of Conception, Cardiac Rate, External Approach (ICD-10-PCS; principal; 2017-07-20)
DX: O26.893 Other specified pregnancy related conditions, third trimester (principal); R42 Dizziness and giddiness; Z3A.34 34 weeks gestation of pregnancy
CPT/HCPCS: 59025; 80307; 81001

== ENCOUNTER 2017-08-04 14:54 | Outpatient (CLI) | payer OTHER, MEDICAID ==
[2017-08-04 16:42] LABS: ABSOLUTE EOSINOPHILS # (AUTO) 0.1 10^3/uL (0.0-0.6); ABSOLUTE MONOCYTES (AUTO) 0.7 10^3/uL (0.1-1.4); ABSOLUTE NEUT (AUTO) 8.4 10^3/uL (1.7-8.2); BASOPHILS % (AUTO) 0.3 % (0-2); EOSINOPHILS % (AUTO) 0.8 % (0-6); HEMATOCRIT 31.5 % (36.0-47.0); HEMOGLOBIN 10.4 g/dL (12.0-15.5); LYMPHOCYTES % (AUTO) 17.7 % (13-45); MEAN CORPUSCULAR HEMOGLOBIN 28.1 pg (27.0-33.4); MEAN CORPUSCULAR HGB CONC 33.1 g/dL (32.0-36.0); MEAN CORPUSCULAR VOLUME 85 fl (80-97); MONOCYTES % (AUTO) 6.2 % (3-13); PLATELET COUNT 294 10^3/uL (150-450); RED BLOOD COUNT 3.71 10^6/uL (3.72-5.28); RED CELL DISTRIBUTION WIDTH 14.9 % (11.5-14.0); TOTAL CELLS COUNTED % (AUTO) 100 %; WHITE BLOOD COUNT 11.2 10^3/uL (4.0-10.5)
[2017-08-04 17:00] LABS: APPEARANCE,URINE SLIGHTLY-CLOUDY; BILIRUBIN,URINE NEGATIVE (NEGATIVE); COLOR,URINE STRAW; GLUCOSE, URINE 50 mg/dL (NEGATIVE); KETONES,URINE NEGATIVE (NEGATIVE); LEUKOCYTE ESTERASE,URINE SMALL (NEGATIVE); NITRITE,URINE NEGATIVE (NEGATIVE); PROTEIN,URINE NEGATIVE (NEGATIVE); URINE SPECIFIC GRAVITY 1.003; UROBILINOGEN,URINE NEGATIVE mg/dL (<2.0)
[2017-08-04 17:02] LABS: ALANINE AMINOTRANSFERASE 29 U/L (9-52); ALBUMIN 3.2 g/dL (3.5-5.0); ALKALINE PHOSPHATASE 90 U/L (38-126); ANION GAP 9 (5-19); ASPARTATE AMINO TRANSFERASE 29 U/L (14-36); BILIRUBIN,DIRECT 0.1 mg/dL (0.0-0.4); BILIRUBIN,TOTAL 0.3 mg/dL (0.2-1.3); BLOOD UREA NITROGEN 3 mg/dL (7-20); CALCIUM 9.7 mg/dL (8.4-10.2); CARBON DIOXIDE 23 mmol/L (22-30); CHLORIDE 108 mmol/L (98-107); GLUCOSE 105 mg/dL (75-110); LDH 515 U/L (313-618); TOTAL PROTEIN 6.1 g/dL (6.3-8.2); URIC ACID 3.8 mg/dL (2.5-6.2)
[2017-08-04 17:49] LABS: URINE AMPHETAMINES SCREEN NEGATIVE; URINE BARBITURATES SCREEN NEGATIVE; URINE BENZODIAZEPINES SCREEN NEGATIVE; URINE COCAINE SCREEN NEGATIVE; URINE METHADONE SCREEN NEGATIVE; URINE PHENCYCLIDINE SCREEN NEGATIVE
[2017-08-04 17:50] LABS: UR PRO/CREAT RATIO RESULT 0.6 mg/mg (0.0-0.2); URINE CREATININE 24.7 mg/dL (16-327); URINE PROTEIN 14.6 mg/dL (<12)
[2017-08-04 17:52] LABS: URINE MARIJUANA (THC) SCREEN UNCONFIRMED POSITIVE
== END 2017-08-04 18:15 | disposition home or self-care (01) ==
LOC: LC 14:54
PROVIDERS: ATTEND Obstetrics & Gynecology Gynecology
PROC: 4A1HXCZ Monitoring of Products of Conception, Cardiac Rate, External Approach (ICD-10-PCS; principal; 2017-08-04)
DX: O13.3 Gestational [pregnancy-induced] hypertension without significant proteinuria, third trimester (principal); Z3A.36 36 weeks gestation of pregnancy
CPT/HCPCS: 36415; 59025; 80053; 80307; 81001; 82570; 83615; 84156; 84550; 85025

== ENCOUNTER → 2017-12-24 | Outpatient (CLI) | payer OTHER ==
--- NOTE | 2017-12-24 16:45 | RADIOLOGY REPORT (SQ) ---
EXAM DESCRIPTION: WRIST LEFT 3 VIEWS COMPLETED DATE/TIME: 12/24/2017 3:23 pm REASON FOR STUDY: RADIAL STYLOID TENOSYNOVITIS DE QUERVAIN M65.4 RADIAL STYLOID TENOSYNOVITIS DE QU ERVAIN Left wrist pain for 3 months, no known injury COMPARISON: None. NUMBER OF VIEWS: Three views. TECHNIQUE: AP, lateral, and oblique radiographic images acquired of the left wrist. LIMITATIONS: None. FINDINGS: MINERALIZATION: Normal. BONES: No acute fracture or dislocation. No worrisome bone lesions. Normal alignment. SOFT TISSUES: No soft tissue swelling. No foreign body. OTHER: No other significant finding. IMPRESSION: NEGATIVE STUDY OF THE LEFT WRIST. NO RADIOGRAPHIC EVIDENCE OF ACUTE INJURY. TECHNICAL DOCUMENTATION: JOB ID: [id number] [employer]- All Rights Reserved Reading location - IP/workstation name: [email or web address]
== END ==
LOC: OD 15:05
PROVIDERS: ATTEND Family Medicine
DX: M65.4 Radial styloid tenosynovitis [de Quervain] (principal)

== ENCOUNTER 2018-04-02 10:14 | Emergency (ER) | payer MEDICAID, OTHER ==
[2018-04-02 10:21] VITALS: BP 129/79
[2018-04-02] MEDS ORDERED: IBUPROFEN 800 MG TABLET PO ONE (10:31)
--- NOTE | 2018-04-02 11:02 | RADIOLOGY REPORT (SQ) ---
EXAM DESCRIPTION: WRIST LEFT 3 VIEWS COMPLETED DATE/TIME: 04/02/2018 10:53 am REASON FOR STUDY: box fell on pt, L wrist pain COMPARISON: 12/24/2017. NUMBER OF VIEWS: Three views. TECHNIQUE: AP, lateral, and oblique radiographic images acquired of the left wrist. LIMITATIONS: None. FINDINGS: MINERALIZATION: Normal. BONES: No acute fracture or dislocation. No worrisome bone lesions. Normal alignment. SOFT TISSUES: No soft tissue swelling. No foreign body. OTHER: No other significant finding. IMPRESSION: NEGATIVE STUDY OF THE LEFT WRIST. NO RADIOGRAPHIC EVIDENCE OF ACUTE INJURY. TECHNICAL DOCUMENTATION: JOB ID: [id number] [employer]- All Rights Reserved Reading location - IP/workstation name: [email or web address]
--- NOTE | 2018-04-02 11:05 | ER Document Report ---
HPI - HPI Patient complains to provider of: Left wrist pain Onset: Yesterday Onset/Duration: Gradual Pain Level: 4 Context: Patient presents complaining of left wrist pain after a box fell on her yesterday. Patient states that she feels as though a bone is sticking out of her wrist. Patient does state she has had tendinitis to this wrist in the past. Associated Symptoms: Other - Left wrist pain Exacerbated by: Movement Relieved by: Denies Similar symptoms previously: Yes Recently seen / treated by doctor: No - ROS ROS below otherwise negative: Yes Systems Reviewed and Negative: Yes All other systems reviewed and negative - CONSTITUTIONAL Constitutional: DENIES: Fever, Chills - MUSCULOSKELETAL Musculoskeletal: REPORTS: Extremity pain - left wrist - DERM Skin Color: Normal Skin Problems: None Past Medical History - General Information source: Patient - Social History Smoking Status: Never Smoker Frequency of alcohol use: None Drug Abuse: None Occupation: [employer] Lives with: Family Family History: Arthritis, DM, Hypertension Patient has suicidal ideation: No Patient has homicidal ideation: No Pulmonary Medical History: Denies: Hx Tuberculosis Neurological Medical History: Reports: Hx Migraine. Denies: Hx Seizures Renal/ Medical History: Reports: Hx Ectopic , Hx Pelvic Inflammatory Disease. Denies: Hx Peritoneal Dialysis Musculoskeletal Medical History: Reports Other - Carpal tunnel Past Surgical History: Reports: Hx Abdominal Surgery, Hx Gynecologic Surgery - right fallopian tube removed by laparoscope. Ectopic . Denies: Hx Hysterectomy, Hx Tubal Ligation - Immunizations Immunizations up to date: No Hx Diphtheria, Pertussis, Tetanus Vaccination: Yes Vertical Provider Document - CONSTITUTIONAL Agree With Documented VS: Yes Exam Limitations: No Limitations General Appearance: WD/WN, No Apparent Distress - INFECTION CONTROL TRAVEL OUTSIDE OF THE [place] IN LAST 30 DAYS: No - HEENT HEENT: Atraumatic, Normocephalic - NECK Neck: Normal Inspection - RESPIRATORY Respiratory: No Respiratory Distress - CARDIOVASCULAR Pulses: Normal: Radial - BACK Back: Normal Inspection - MUSCULOSKELETAL/EXTREMETIES Musculoskeletal/Extremeties: MAEW, Tender - Left wrist tenderness over distal radius, patient with nodular lesion over medial aspect of left wrist. Normal skin color and temperature overlying joint. - NEURO Level of Consciousness: Awake, Alert, Appropriate Motor/Sensory: No Motor Deficit - DERM Integumentary: Warm, Dry, No Rash Course - Re-evaluation Re-evalutation: 04/02/18 Patient without any bony abnormalities noted on x-ray. Patient does have nodular lesion concerning for likely ganglion cyst. Patient encouraged to follow-up with orthopedics for further evaluation. - Vital Signs Vital signs: Temp Pulse Resp BP Pulse Ox 98.4 F 73 16 129/79 H 100 04/02/18 10:18 04/02/18 10:18 04/02/18 10:18 04/02/18 10:18 04/02/18 10:18 - Diagnostic Test Radiology reviewed: Image reviewed, Reports reviewed Discharge - Discharge Clinical Impression: Left wrist sprain Qualifiers: Encounter type: initial encounter Qualified Code(s): S63.502A - Unspecified sprain of left wrist, initial encounter Condition: Stable Disposition: HOME, SELF-CARE Instructions: Ganglion Cyst ([facility]), Ice & Elevation ([facility]), Wrist Sprain ([facility]) Additional Instructions: Return immediately for any new or worsening symptoms Followup with your primary care provider, call tomorrow to make a followup appointment Follow-up with orthopedics for further evaluation, call Wednesday for an appointment Prescriptions: Naproxen [Naprosyn 250 Nmg Tablet] 1 tab PO BID #14 tablet Forms: Return to Work Referrals: SERINA COLLINS MD [Primary Care Provider] - Follow up as needed [facility] [Provider Group] - 04/04/18
== END 2018-04-02 11:21 | disposition home or self-care (01) ==
LOC: ER 10:14
DX: S63.502A Unspecified sprain of left wrist, initial encounter (principal); M25.532 Pain in left wrist; W20.8XXA Other cause of strike by thrown, projected or falling object, initial encounter; Y99.0 Civilian activity done for income or pay
CPT/HCPCS: 99283; 73110; L3908

== ENCOUNTER 2018-06-29 14:56 | Emergency (ER) | payer OTHER ==
[2018-06-29 15:02] VITALS: BP 136/76
[2018-06-29] MEDS ORDERED: ACETAMINOPHEN 325 MG TABLET PO ONE (16:16)
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
[2018-06-29] MEDS ORDERED: KETOROLAC TROMETHAMINE INJ/PF 30 MG/1 ML SDV IV ONE (17:23)
== END 2018-06-29 17:41 | disposition home or self-care (01) ==
LOC: ER 14:56
DX: S06.9X9A Unspecified intracranial injury with loss of consciousness of unspecified duration, initial encounter (principal); R51 Headache; M54.2 Cervicalgia; R07.9 Chest pain, unspecified; V49.40XA Driver injured in collision with unspecified motor vehicles in traffic accident, initial encounter; W22.11XA Striking against or struck by driver side automobile airbag, initial encounter
CPT/HCPCS: 99283; 96374; 70450; 71260; 72125; L0120; J1885

== ENCOUNTER 2019-08-13 20:10 | Emergency (ER) | payer OTHER ==
[2019-08-13] MEDS ORDERED: FAMOTIDINE 20 MG TABLET PO ONE (21:03)
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
[2019-08-13 21:55] LABS: ABSOLUTE BASOPHILS # (AUTO) 0.1 10^3/uL (0.0-0.2); ABSOLUTE EOSINOPHILS # (AUTO) 0.1 10^3/uL (0.0-0.6); ABSOLUTE LYMPHOCYTES (AUTO) 2.8 10^3/uL (0.5-4.7); ABSOLUTE MONOCYTES (AUTO) 0.4 10^3/uL (0.1-1.4); ABSOLUTE NEUT (AUTO) 2.7 10^3/uL (1.7-8.2); BASOPHILS % (AUTO) 1.1 % (0-2); EOSINOPHILS % (AUTO) 1.3 % (0-6); HEMATOCRIT 38.5 % (36.0-47.0); HEMOGLOBIN 12.9 g/dL (12.0-15.5); LYMPHOCYTES % (AUTO) 45.8 % (13-45); MEAN CORPUSCULAR HEMOGLOBIN 29.7 pg (27.0-33.4); MEAN CORPUSCULAR HGB CONC 33.5 g/dL (32.0-36.0); MEAN CORPUSCULAR VOLUME 89 fl (80-97); MONOCYTES % (AUTO) 6.7 % (3-13); PLATELET COUNT 331 10^3/uL (150-450); RED BLOOD COUNT 4.34 10^6/uL (3.72-5.28); RED CELL DISTRIBUTION WIDTH 13.5 % (11.5-14.0); SEGMENTED NEUTROPHILS % (AUTO) 45.1 % (42-78); TOTAL CELLS COUNTED % (AUTO) 100 %; WHITE BLOOD COUNT 6.1 10^3/uL (4.0-10.5)
[2019-08-13 22:12] LABS: ALBUMIN 4.9 g/dL (3.5-5.0); ALKALINE PHOSPHATASE 55 U/L (38-126); ANION GAP 9 (5-19); ASPARTATE AMINO TRANSFERASE 25 U/L (14-36); BILIRUBIN,DIRECT 0.2 mg/dL (0.0-0.4); BILIRUBIN,TOTAL 0.4 mg/dL (0.2-1.3); BLOOD UREA NITROGEN 11 mg/dL (7-20); CALCIUM 10.1 mg/dL (8.4-10.2); CARBON DIOXIDE 26 mmol/L (22-30); CHLORIDE 103 mmol/L (98-107); GLUCOSE 91 mg/dL (75-110); TOTAL PROTEIN 8.4 g/dL (6.3-8.2)
--- NOTE | 2019-08-13 22:43 | RADIOLOGY REPORT (SQ) ---
EXAM DESCRIPTION: US ABDOMEN LIMITED CLINICAL INDICATION: 28-year-old female with RIGHT upper quadrant abdominal pain. COMPARISON: None. TECHNIQUE: Rivera scale sonography of the right upper quadrant abdomen. FINDINGS: LIVER: Within normal limits morphology and echogenicity measuring 12.1 cm. GALLBLADDER: Within normal limits without gallbladder wall thickening pericholecystic fluid or cholelithiasis. Slight layering echogenicity may reflect sludge. Positive sonographic Mora's sign. BILIARY TRACT: No clear intrahepatic biliary dilatation. The common bile duct measures 6 mm. PANCREAS: Limited evaluation secondary to partial obscuration by overlying bowel gas otherwise within normal limits. KIDNEY: The RIGHT kidney is within normal limits of morphology and echogenicity measuring 9.8 x 4.3 x 5.3 cm. Focus of circumscribed hypoechogenicity with posterior through transmission within the superior pole of the RIGHT kidney measuring 9 x 5 x 7 m suggestive of a simple renal cyst. IMPRESSION: 1. Slight layering echogenicity may reflect sludge. 2. Top normal size of the common bile duct measuring 6 mm without intrahepatic biliary dilation. 3. Positive sonographic Mora's sign, without specific findings to suggest etiology of the patient's symptoms.
[2019-08-13] MEDS ORDERED: DICYCLOMINE HCL INJ 20 MG/2 ML AMPULE IM ONE (23:12)
[2019-08-13] MEDS ORDERED: KETOROLAC TROMETHAMINE 60 MG/2 ML SDV IM ONE (23:12)
[2019-08-13 23:24] LABS: APPEARANCE,URINE CLEAR; BILIRUBIN,URINE NEGATIVE (NEGATIVE); COLOR,URINE COLORLESS; GLUCOSE, URINE NEGATIVE (NEGATIVE); KETONES,URINE NEGATIVE (NEGATIVE); LEUKOCYTE ESTERASE,URINE NEGATIVE (NEGATIVE); NITRITE,URINE NEGATIVE (NEGATIVE); PROTEIN,URINE NEGATIVE (NEGATIVE); URINE SPECIFIC GRAVITY 1.002; UROBILINOGEN,URINE NEGATIVE mg/dL (<2.0)
[2019-08-14] MEDS ORDERED: MORPHINE SULFATE 10 MG/ML INJ IM ONE (00:40)
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
[2019-08-14 01:48] VITALS: BP 112/58
== END 2019-08-14 02:11 | disposition home or self-care (01) ==
LOC: ER 20:10
DX: K81.0 Acute cholecystitis (principal); R10.11 Right upper quadrant pain; R10.13 Epigastric pain; R11.0 Nausea; F17.200 Nicotine dependence, unspecified, uncomplicated
CPT/HCPCS: 99284; 96372; 36415; 83690; 85025; 81025; 80053; 81001; 76705; J0500; J1885; J2270

== ENCOUNTER 2019-10-05 15:31 | Emergency (ER) | payer SELFPAY ==
[2019-10-05] MEDS ORDERED: NORMAL SALINE 1000 ML 1,000 ML IV ONE (16:02)
[2019-10-05] MEDS ORDERED: ONDANSETRON HCL INJ/PF 4 MG/2 ML SDV IV ONE (16:03)
--- NOTE | 2019-10-05 16:04 | ER Document Report ---
ED Medical Screen (RME) - General Chief Complaint: Nausea/Vomiting Stated Complaint: NAUSEA,VOMITING Time Seen by Provider: 10/05/19 15:58 Notes: HPI: 28-year-old female presenting to the emergency department complaining of nausea vomiting for 2 days, cannot count number of times she has thrown up. Reports occasional abdominal cramping but not consistently. Occasionally has had some diarrhea with this. Patient is late for her menstrual cycle. Does not know if she might be . Denies vaginal pain vaginal discharge or vaginal bleeding I have greeted and performed a rapid initial assessment of this patient. A comprehensive ED assessment and evaluation of the patient, analysis of test results and completion of the medical decision making process will be conducted by additional ED providers PHYSICAL EXAMINATION: GENERAL: Well-appearing, well-nourished and in moderate acute distress. Patient was vomiting just prior to evaluation HEAD: Atraumatic, normocephalic. EYES: sclera anicteric, conjunctiva are normal. ENT: Moist mucous membranes. NECK: Normal range of motion LUNGS: Normal work of breathing, clear to auscultation HEART: 2+ radial pulses bilaterally, regular rate and rhythm ABD: limited by positioning for exam in triage. No reproducible abdominal pain EXTREMITIES: no pitting or edema. No cyanosis. NEUROLOGICAL: No focal neurological deficits. Moves all extremities spontaneously and on command. PSYCH: Normal mood, normal affect. SKIN: Warm, Dry, normal turgor, no rashes or lesions noted. TRAVEL OUTSIDE OF THE [place] IN LAST 30 DAYS: No - Related Data Allergies/Adverse Reactions: No Known Allergies Allergy (Verified 10/05/19 15:55) Past Medical History - Past Medical History Cardiac Medical History: Reports: Hx Heart Murmur Pulmonary Medical History: Denies: Hx Tuberculosis Neurological Medical History: Reports: Hx Migraine. Denies: Hx Seizures Renal/ Medical History: Reports: Hx Ectopic , Hx Pelvic Inflammatory Disease. Denies: Hx Peritoneal Dialysis Past Surgical History: Reports: Hx Abdominal Surgery, Hx Gynecologic Surgery - right fallopian tube removed by laparoscope. Ectopic . Denies: Hx Hysterectomy, Hx Tubal Ligation - Immunizations Immunizations up to date: No Hx Diphtheria, Pertussis, Tetanus Vaccination: Yes Physical Exam - Vital signs Vitals: Temp Pulse Resp BP Pulse Ox 98.1 F 78 20 133/72 H 100 10/05/19 15:34 10/05/19 15:34 10/05/19 15:34 10/05/19 15:34 10/05/19 15:34 Course - Vital Signs Vital signs: Temp Pulse Resp BP Pulse Ox 98.1 F 78 20 133/72 H 100 10/05/19 15:34 10/05/19 15:34 10/05/19 15:34 10/05/19 15:34 10/05/19 15:34
[2019-10-05 16:27] LABS: APPEARANCE,URINE SLIGHTLY-CLOUDY; BILIRUBIN,URINE NEGATIVE (NEGATIVE); COLOR,URINE YELLOW; GLUCOSE, URINE NEGATIVE (NEGATIVE); KETONES,URINE NEGATIVE (NEGATIVE); LEUKOCYTE ESTERASE,URINE NEGATIVE (NEGATIVE); NITRITE,URINE NEGATIVE (NEGATIVE); PROTEIN,URINE 30 mg/dL (NEGATIVE); URINE SPECIFIC GRAVITY 1.024; UROBILINOGEN,URINE NEGATIVE mg/dL (<2.0)
[2019-10-05 16:28] LABS: ABSOLUTE BASOPHILS # (AUTO) 0.1 10^3/uL (0.0-0.2); ABSOLUTE LYMPHOCYTES (AUTO) 1.9 10^3/uL (0.5-4.7); ABSOLUTE MONOCYTES (AUTO) 0.4 10^3/uL (0.1-1.4); ABSOLUTE NEUT (AUTO) 7.1 10^3/uL (1.7-8.2); BASOPHILS % (AUTO) 0.6 % (0-2); EOSINOPHILS % (AUTO) 0.3 % (0-6); LYMPHOCYTES % (AUTO) 20.2 % (13-45); MEAN CORPUSCULAR HEMOGLOBIN 29.9 pg (27.0-33.4); MEAN CORPUSCULAR HGB CONC 33.5 g/dL (32.0-36.0); MEAN CORPUSCULAR VOLUME 89 fl (80-97); MONOCYTES % (AUTO) 4.1 % (3-13); PLATELET COUNT 361 10^3/uL (150-450); RED BLOOD COUNT 4.36 10^6/uL (3.72-5.28); RED CELL DISTRIBUTION WIDTH 13.7 % (11.5-14.0); SEGMENTED NEUTROPHILS % (AUTO) 74.8 % (42-78); TOTAL CELLS COUNTED % (AUTO) 100 %; WHITE BLOOD COUNT 9.5 10^3/uL (4.0-10.5)
[2019-10-05 16:46] LABS: ALBUMIN 4.8 g/dL (3.5-5.0); ALKALINE PHOSPHATASE 52 U/L (38-126); ANION GAP 9 (5-19); ASPARTATE AMINO TRANSFERASE 24 U/L (14-36); BILIRUBIN,TOTAL 0.4 mg/dL (0.2-1.3); BLOOD UREA NITROGEN 8 mg/dL (7-20); CALCIUM 10.2 mg/dL (8.4-10.2); CARBON DIOXIDE 27 mmol/L (22-30); CHLORIDE 101 mmol/L (98-107); GLUCOSE 98 mg/dL (75-110); POTASSIUM 4.1 mmol/L (3.6-5.0); TOTAL PROTEIN 8.2 g/dL (6.3-8.2)
[2019-10-05] MEDS ORDERED: ONDANSETRON ODT 4 MG TAB (6 TAB/ER DISP) PO PRN (19:30)
--- NOTE | 2019-10-05 19:35 | ER Document Report ---
ED General - General Chief Complaint: Nausea/Vomiting Stated Complaint: NAUSEA,VOMITING Time Seen by Provider: 10/05/19 15:58 TRAVEL OUTSIDE OF THE [place] IN LAST 30 DAYS: No - HPI Notes: Patient is a 28-year-old female who presents to the emergency department for evaluation of nausea and vomiting. She states that for the last 3 days she really has not been able to keep anything down. She had some diarrhea yesterday but had a normal bowel movement today. She denies any fevers or chills. No cough or shortness of breath. No vaginal discharge or dysuria. She states her last menstrual period was approximately August 26. - Related Data Allergies/Adverse Reactions: No Known Allergies Allergy (Verified 10/05/19 15:55) Home Medications: [facility] Past Medical History - General Information source: Patient - Social History Smoking Status: Former Smoker Chew tobacco use (# tins/day): No Frequency of alcohol use: Occasional Drug Abuse: None Family History: Arthritis, DM, Hypertension Patient has suicidal ideation: No Patient has homicidal ideation: No - Past Medical History Cardiac Medical History: Reports: Hx Heart Murmur Pulmonary Medical History: Denies: Hx Tuberculosis Neurological Medical History: Reports: Hx Migraine. Denies: Hx Seizures Renal/ Medical History: Reports: Hx Ectopic , Hx Pelvic Inflammatory Disease. Denies: Hx Peritoneal Dialysis Past Surgical History: Reports: Hx Abdominal Surgery, Hx Gynecologic Surgery - right fallopian tube removed by laparoscope. Ectopic . Denies: Hx Hysterectomy, Hx Tubal Ligation - Immunizations Immunizations up to date: No Hx Diphtheria, Pertussis, Tetanus Vaccination: Yes Review of Systems - Review of Systems Gastrointestinal: See HPI Female Genitourinary: See HPI -: Yes All other systems reviewed and negative Physical Exam - Vital signs Vitals: Temp Pulse Resp BP Pulse Ox 98.1 F 78 20 133/72 H 100 10/05/19 15:34 10/05/19 15:34 10/05/19 15:34 10/05/19 15:34 10/05/19 15:34 - Notes Notes: Vital signs reviewed, please refer to chart. Head is normocephalic, atraumatic. Pupils equal round, reactive to light. Neck is supple without meningismus. Heart is regular rate and rhythm. Lungs are clear to auscultation bilaterally. Abdomen is soft, nontender, normoactive bowel sounds throughout. Extremities without cyanosis, clubbing. Posterior calves are nontender. Peripheral pulses are equal. Skin is warm and dry. Patient is awake, alert, neurological exam is nonfocal. Course - Re-evaluation Re-evalutation: 10/05/19 19:32 Patient presents to the emergency department for evaluation. She has had some nausea and vomiting. She had lab work that is ordered through triage. She was given IV fluids and IV Zofran. Her test was found to be positive. The patient was notified of this. At this point she does not want any further blood work or imaging, she states not having any pain, she just wants to be discharged from the department. We will send her home with a small amount of Zofran and close follow-up. She has seen Surjit in the past for her other , she may follow-up with them. Also refer her to our ARCHITECTURAL DESIGNER on-call. She is to return to the ED with worsening or new concerning symptoms of any sort. She is notified that no medication has been deemed entirely safe in , and if she can avoid medications of any sort it is szymanski. She voiced understanding. - Vital Signs Vital signs: Temp Pulse Resp BP Pulse Ox 98.1 F 78 20 133/72 H 100 10/05/19 15:34 10/05/19 15:34 10/05/19 15:34 10/05/19 15:34 10/05/19 15:34 - Laboratory Result Diagrams: 10/05/19 16:05 10/05/19 16:05 Laboratory results interpreted by me: 10/05/19 16:05 Urine Protein 30 H Urine HCG, Qual POSITIVE H Discharge - Discharge Clinical Impression: Nausea and vomiting during Condition: Stable Disposition: HOME, SELF-CARE Instructions: Vomiting ([facility]), Antinausea Medication ([facility]) Additional Instructions: Stay well hydrated with small, frequent sips of fluid. If you develop severe nausea try the Zofran. Please minimize your intake of this medication, as no medication has been found to be completely safe in . Start vitamins as discussed. Follow-up with OB, either the java web user interface developer of your choice or OB on-call. Return to the emergency department if you develop worsening or new concerning symptoms of any sort. Referrals: AARON WARREN MD [ACTIVE STAFF] - Follow up as needed
[2019-10-05 19:59] VITALS: BP 122/70
== END 2019-10-05 20:00 | disposition home or self-care (01) ==
LOC: ER 15:31
DX: O21.9 Vomiting of pregnancy, unspecified (principal); Z3A.01 Less than 8 weeks gestation of pregnancy; Z87.891 Personal history of nicotine dependence; Z87.59 Personal history of other complications of pregnancy, childbirth and the puerperium; Z90.79 Acquired absence of other genital organ(s)
CPT/HCPCS: 99283; 96361; 96374; 36415; 85025; 81025; 80053; 81001; J2405; J7030

== ENCOUNTER 2019-10-13 14:37 | Emergency (ER) | payer SELFPAY ==
--- NOTE | 2019-10-13 14:51 | ER Document Report ---
ED Medical Screen (RME) - General Chief Complaint: Vaginal Bleeding Stated Complaint: VAGINAL CRAMPING/BLEEDING Time Seen by Provider: 10/13/19 14:48 Mode of Arrival: Ambulatory Information source: Patient Notes: 28-year-old female presented to ED for complaint of pelvic pain and vaginal bleeding. She states she was recently seen in the ED and told she was . She states she is about 7 weeks and was doing good until last night she started having severe cramping this morning she noticed some blood and it is getting worse now until she is passing a lot of clots. I did check her previous records she is O+ blood type. I have ordered blood urine and an ultrasound. I have greeted and performed a rapid initial assessment of this patient. A comprehensive ED assessment and evaluation of the patient, analysis of test results and completion of medical decision making process will be conducted by an additional ED providers. - Related Data Allergies/Adverse Reactions: No Known Allergies Allergy (Verified 10/05/19 15:55) Past Medical History - Past Medical History Cardiac Medical History: Reports: Hx Heart Murmur Pulmonary Medical History: Denies: Hx Tuberculosis Neurological Medical History: Reports: Hx Migraine. Denies: Hx Seizures Renal/ Medical History: Reports: Hx Ectopic , Hx Pelvic Inflammatory Disease. Denies: Hx Peritoneal Dialysis Past Surgical History: Reports: Hx Abdominal Surgery, Hx Gynecologic Surgery - right fallopian tube removed by laparoscope. Ectopic . Denies: Hx Hysterectomy, Hx Tubal Ligation - Immunizations Immunizations up to date: No Hx Diphtheria, Pertussis, Tetanus Vaccination: Yes Physical Exam - Vital signs Vitals: Temp Pulse Resp BP Pulse Ox 98.1 F 69 16 130/62 H 100 10/13/19 14:40 10/13/19 14:40 10/13/19 14:40 10/13/19 14:40 10/13/19 14:40 Course - Vital Signs Vital signs: Temp Pulse Resp BP Pulse Ox 98.1 F 69 16 130/62 H 100 10/13/19 14:40 10/13/19 14:40 10/13/19 14:40 10/13/19 14:40 10/13/19 14:40
[2019-10-13 15:18] LABS: ABSOLUTE LYMPHOCYTES (AUTO) 1.9 10^3/uL (0.5-4.7); ABSOLUTE MONOCYTES (AUTO) 0.4 10^3/uL (0.1-1.4); ABSOLUTE NEUT (AUTO) 2.6 10^3/uL (1.7-8.2); BASOPHILS % (AUTO) 0.4 % (0-2); EOSINOPHILS % (AUTO) 0.9 % (0-6); HEMATOCRIT 36.9 % (36.0-47.0); HEMOGLOBIN 12.6 g/dL (12.0-15.5); LYMPHOCYTES % (AUTO) 38.4 % (13-45); MEAN CORPUSCULAR HEMOGLOBIN 30.4 pg (27.0-33.4); MEAN CORPUSCULAR HGB CONC 34.2 g/dL (32.0-36.0); MEAN CORPUSCULAR VOLUME 89 fl (80-97); MONOCYTES % (AUTO) 7.5 % (3-13); PLATELET COUNT 326 10^3/uL (150-450); RED BLOOD COUNT 4.14 10^6/uL (3.72-5.28); RED CELL DISTRIBUTION WIDTH 13.9 % (11.5-14.0); SEGMENTED NEUTROPHILS % (AUTO) 52.8 % (42-78); TOTAL CELLS COUNTED % (AUTO) 100 %
[2019-10-13 15:37] LABS: AMORPHOUS SEDIMENT,URINE TRACE /HPF; APPEARANCE,URINE CLOUDY; BILIRUBIN,URINE NEGATIVE (NEGATIVE); COLOR,URINE YELLOW; GLUCOSE, URINE NEGATIVE (NEGATIVE); KETONES,URINE NEGATIVE (NEGATIVE); PROTEIN,URINE 30 mg/dL (NEGATIVE); URINE SPECIFIC GRAVITY 1.028; UROBILINOGEN,URINE NEGATIVE mg/dL (<2.0)
[2019-10-13 15:42] LABS: ALBUMIN 4.4 g/dL (3.5-5.0); ALKALINE PHOSPHATASE 64 U/L (38-126); ANION GAP 8 (5-19); ASPARTATE AMINO TRANSFERASE 24 U/L (14-36); BILIRUBIN,DIRECT 0.3 mg/dL (0.0-0.4); BILIRUBIN,TOTAL 0.3 mg/dL (0.2-1.3); BLOOD UREA NITROGEN 14 mg/dL (7-20); CALCIUM 9.8 mg/dL (8.4-10.2); CARBON DIOXIDE 28 mmol/L (22-30); CHLORIDE 101 mmol/L (98-107); GLUCOSE 107 mg/dL (75-110); POTASSIUM 3.7 mmol/L (3.6-5.0); TOTAL PROTEIN 7.8 g/dL (6.3-8.2)
--- NOTE | 2019-10-13 17:47 | RADIOLOGY REPORT (SQ) ---
EXAM DESCRIPTION: U/S OB TRANSVAGINAL W/O DOP COMPLETED DATE/TIME: 10/13/2019 5:37 pm REASON FOR STUDY: Vaginal bleeding pelvic cramping about 7 weeks pre COMPARISON: None. TECHNIQUE: Transvaginal static and realtime grayscale images acquired of the pelvis. Additional denis cted spectral and color Doppler images recorded. All images stored on PACs. CLINICAL AGE: 6 week 6 day [facility].8 LIMITATIONS: None. FINDINGS: UTERUS: No visualized intrauterine . Thickened mildly heterogeneous endometrium. RIGHT ADNEXA: Normal ovary with normal vascular flow. No adnexal free fluid. Adjacent to the ovary there is a 3.1 x 2.2 x 2.5 cm echogenic focus which is nonspecific. This does not show any suspicious vascular flow as would be expected with an ectopic. LEFT ADNEXA: Normal ovary with normal vascular flow. No adnexal free fluid. No adnexal masses. FREE FLUID: None. OTHER: No other significant finding. IMPRESSION: NO VISUALIZED INTRA- OR EXTRAUTERINE . bHCG LEVEL TOO LOW TO EXPECT VISUALIZATION OF . ECTOPIC CANNOT BE EXCLUDED. FOLLOW-UP ULTRASOUND AND SERIAL BHCG LEVELS STRONGLY RECOMMENDED TO ACCURATELY ASSESS STATU S. TECHNICAL DOCUMENTATION: JOB ID: [id number] 2010 [employer]- All Rights Reserved Reading location - IP/workstation name: [email or web address]
--- NOTE | 2019-10-13 18:55 | ER Document Report ---
ED GI/ - General Chief Complaint: Vag Bleeding, +preg <12wks Stated Complaint: VAGINAL CRAMPING/BLEEDING Time Seen by Provider: 10/13/19 14:48 Mode of Arrival: Ambulatory Information source: Patient Notes: Patient is otherwise healthy 28-year-old female presented to the emergency department chief complaint of vaginal bleeding in the setting of . Patient reports she is a . She has a history of having a right sided ectopic in the past. She states she is approximately 7 weeks began bleeding yesterday. She reports she has severe lower abdominal cramping. Patient reports she has been passing clots and tissue. TRAVEL OUTSIDE OF THE [place] IN LAST 30 DAYS: No - Related Data Allergies/Adverse Reactions: No Known Allergies Allergy (Verified 10/05/19 15:55) Past Medical History - General Information source: Patient - Social History Smoking Status: Former Smoker Family History: Arthritis, DM, Hypertension Patient has suicidal ideation: No Patient has homicidal ideation: No - Past Medical History Cardiac Medical History: Reports: Hx Heart Murmur Pulmonary Medical History: Denies: Hx Tuberculosis Neurological Medical History: Reports: Hx Migraine. Denies: Hx Seizures Renal/ Medical History: Reports: Hx Ectopic , Hx Pelvic Inflammatory Disease. Denies: Hx Peritoneal Dialysis Past Surgical History: Reports: Hx Abdominal Surgery, Hx Gynecologic Surgery - right fallopian tube removed by laparoscope. Ectopic . Denies: Hx Hysterectomy, Hx Tubal Ligation - Immunizations Immunizations up to date: No Hx Diphtheria, Pertussis, Tetanus Vaccination: Yes Review of Systems - Review of Systems Female Genitourinary: See HPI -: Yes All other systems reviewed and negative Physical Exam - Vital signs Vitals: Temp Pulse Resp BP Pulse Ox 98.1 F 69 16 130/62 H 100 10/13/19 14:40 10/13/19 14:40 10/13/19 14:40 10/13/19 14:40 10/13/19 14:40 - Notes Notes: PHYSICAL EXAMINATION: GENERAL: Well-appearing, well-nourished and in no acute distress. HEAD: Atraumatic, normocephalic. EYES: Pupils equal round and reactive to light, extraocular movements intact, conjunctiva are normal. ENT: Nares patent, oropharynx clear without exudates. Moist mucous membranes. NECK: Normal range of motion, supple without lymphadenopathy LUNGS: Breath sounds clear to auscultation bilaterally and equal. No wheezes rales or rhonchi. HEART: Regular rate and rhythm without murmurs ABDOMEN: Soft, nontender, nondistended abdomen. No guarding, no rebound. No masses appreciated. Female : deferred Musculoskeletal: Normal range of motion, no pitting or edema. No cyanosis. NEUROLOGICAL: Cranial nerves grossly intact. Normal speech, normal gait. Normal sensory, motor exams PSYCH: Tearful SKIN: Warm, Dry, normal turgor, no rashes or lesions noted. Course - Re-evaluation Re-evalutation: Laboratory 10/13/19 10/13/19 10/13/19 15:00 15:00 15:00 WBC 5.0 RBC 4.14 Hgb 12.6 Hct 36.9 MCV 89 MCH 30.4 MCHC 34.2 RDW 13.9 Plt Count 326 Lymph % (Auto) 38.4 [place] % (Auto) 7.5 Eos % (Auto) 0.9 Baso % (Auto) 0.4 Absolute Neuts (auto) 2.6 Absolute Lymphs (auto) 1.9 Absolute Monos (auto) 0.4 Absolute Eos (auto) 0.0 Absolute Basos (auto) 0.0 Seg Neutrophils % 52.8 Sodium 136.7 L Potassium 3.7 Chloride 101 Carbon Dioxide 28 Anion Gap 8 BUN 14 Creatinine 0.57 Est GFR ( Amer) > 60 Est GFR (MDRD) Non-Af > 60 Glucose 107 Calcium 9.8 Total Bilirubin 0.3 Direct Bilirubin 0.3 Neonat Total Bilirubin Not Reportable Neonat Direct Bilirubin Not Reportable Neonat Indirect Bili Not Reportable AST 24 ALT 14 Alkaline Phosphatase 64 Total Protein 7.8 Albumin 4.4 Lipase 99.8 Beta HCG, Quant 6067.80 H Total Beta HCG POSITIVE Urine Color YELLOW Urine Appearance CLOUDY Urine pH 7.0 Ur Specific [place] 1.028 Urine Protein 30 H Urine Glucose (UA) NEGATIVE Urine Ketones NEGATIVE Urine Blood LARGE H Urine Nitrite (Reflex) NEGATIVE Urine Bilirubin NEGATIVE Urine Urobilinogen NEGATIVE Leukocyte Esterase Rfl NEGATIVE Urine RBC (Auto) >182 U Hyaline Cast (Auto) 4 Squamous Epi Cells Auto 2 Amorphous Sediment Auto TRACE Urine Mucus (Auto) MANY Urine Ascorbic Acid NEGATIVE Obstetrics Ultrasound 10/13/19 14:49 IMPRESSION: NO VISUALIZED INTRA- OR EXTRAUTERINE . bHCG LEVEL TOO LOW TO EXPECT VISUALIZATION OF . ECTOPIC CANNOT BE EXCLUDED. FOLLOW-UP ULTRASOUND AND SERIAL BHCG LEVELS STRONGLY RECOMMENDED TO ACCURATELY ASSESS STATUS. Likely early miscarriage. Patient will follow-up in 48 hours with the emergency department for repeat hCG levels. Patient describes changing about 1 pad every 2-3 hours. Hemoglobin and hematocrit are stable at this time. - Vital Signs Vital signs: Temp Pulse Resp BP Pulse Ox 98.1 F 68 16 138/60 H 100 10/13/19 14:40 10/13/19 18:58 10/13/19 18:58 10/13/19 18:58 10/13/19 18:58 - Laboratory Result Diagrams: 10/13/19 15:00 10/13/19 15:00 Laboratory results interpreted by me: 10/13/19 10/13/19 15:00 15:00 Sodium 136.7 L Beta HCG, Quant 6067.80 H Urine Protein 30 H Urine Blood LARGE H Discharge - Discharge Clinical Impression: Miscarriage Condition: Stable Disposition: HOME, SELF-CARE Additional Instructions: Miscarriage You have had a miscarriage (medically called a "spontaneous "). The miscarriage occurred because the fetus did not develop normally. There is nothing you did to cause it, and nothing you could have done to prevent it. About one in four ends in miscarriage. You should rest in bed for two or three days. As there is some risk of infection of the uterus, you should not have intercourse for one week (or until okayed by your physician). You might not have a period for six to eight weeks. You should not become again for at least three months -- the uterus requires time to get back to normal. Call the doctor or return for re-examination if there is heavy or persistent vaginal bleeding, fever, foul discharge, continued cramping pains, or abdominal pain. It appears that you have had a miscarriage. Please return to the emergency department in 2 days for repeat HCG and ultrasound. Return sooner if you develop heavy vaginal bleeding that is bleeding through more than 1 pad per hour for 4 hours consecutively. Prescriptions: Hydrocodone/Acetaminophen [[place]ub[place] 5-325 mg Tablet] 1 tab PO Q4H #12 tablet Promethazine HCl [Phenergan 25 mg Tablet] 25 - 50 mg PO ASDIR PRN #12 tablet PRN Reason: Forms: Return to Work
[2019-10-13 18:58] VITALS: BP 138/60
== END 2019-10-13 19:04 | disposition home or self-care (01) ==
LOC: ER 14:37
DX: O03.9 Complete or unspecified spontaneous abortion without complication (principal); O46.91 Antepartum hemorrhage, unspecified, first trimester; O26.891 Other specified pregnancy related conditions, first trimester; R10.30 Lower abdominal pain, unspecified; Z3A.01 Less than 8 weeks gestation of pregnancy; Z87.891 Personal history of nicotine dependence
CPT/HCPCS: 36415; 76817; 80053; 81001; 83690; 84702; 85025; 99284